=== PATIENT | female | born 1955 | race Caucasian/White ===

== ENCOUNTER 2019-10-30 13:44 | Inpatient (IN) | payer MEDICARE ==
[~2019-10-30] VITALS: Ht 167.6 cm; Wt 83.3 kg
[2019-10-30 17:30] VITALS: BP 100/76
[2019-10-30] MEDS ORDERED: CLOP75TA32 PO (18:02)
[2019-10-30] MEDS ORDERED: INSU100I21 SQ (18:02)
[2019-10-30] MEDS ORDERED: FURO40TA5 PO (18:02)
[2019-10-30] MEDS ORDERED: ASPI-556 PO (18:02)
[2019-10-30] MEDS ORDERED: FAMO20TA8 PO (18:02)
[2019-10-30] MEDS ORDERED: DOXE100C4 PO (18:02)
[2019-10-30] MEDS ORDERED: MULT-1311 PO (18:02)
[2019-10-30] MEDS ORDERED: ATOR20TA65 PO (18:02)
[2019-10-30] MEDS ORDERED: DIPH25 PO (18:02)
[2019-10-30] MEDS ORDERED: LIRA0.6P2 SQ (18:02)
[2019-10-30] MEDS ORDERED: LACT1CAP62 PO (18:02)
[2019-10-30] MEDS ORDERED: CHOL200012 PO (18:02)
[2019-10-30] MEDS ORDERED: SIMV10TA97 PO (18:02)
[2019-10-30] MEDS ORDERED: ZOLP5TAB8 PO (18:02)
[2019-10-30] MEDS ORDERED: OMEG100T PO (18:02)
[2019-10-30] MEDS ORDERED: METF-446 PO (18:02)
[2019-10-30] MEDS ORDERED: BIOT10005 PO (18:02)
[2019-10-30] MEDS ORDERED: GLIP10TA9 PO (18:02)
[2019-10-30 19:43] VITALS: BP 134/63
[2019-10-30 20:25] LABS: HEMATOCRIT 33.9 % (36-48); MEAN CORPUSCULAR HEMOGLOBIN 21.9 pg (27.0-33.0); MEAN CORPUSCULAR HGB CONC 29.5 g/dL (32.0-36.0); MEAN CORPUSCULAR VOLUME 74.3 fL (79-99); PLATELET COUNT (AUTO) 300 K/uL (130-400); RED BLOOD CELL COUNT(AUTO) 4.56 MIL/uL (4.00-5.50); RED CELL DISTRIBUTION WIDTH 16.7 % (11.0-15.5); WHITE BLOOD COUNT (AUTO) 8.2 K/uL (4.8-10.8)
[2019-10-30 20:40] LABS: INR 1.06 (0.85-1.15); PARTIAL THROMBOPLASTIN TIME 26.6 SEC (26.3-35.5); PROTHROMBIN TIME 11.4 SEC (9.6-11.6)
[2019-10-30 20:47] LABS: B-TYPE NATRIURETIC PEPTIDE 1320 pg/mL (0-100)
[2019-10-30 21:02] LABS: ALBUMIN 2.7 g/dL (3.5-5.0); BILIRUBIN,TOTAL 0.5 mg/dL (0.2-1.0); CREATININE 1.3 mg/dL (0.5-1.5); POTASSIUM 3.9 mmol/L (3.5-5.1); TOTAL PROTEIN, SERUM 6.1 g/dL (6.0-8.3)
[2019-10-30 21:18] LABS: HEMOGLOBIN A1C 7.9 % (4.0-6.0)
[2019-10-30 23:45] VITALS: BP 107/73
[2019-10-31] VITALS (29 sets, daily range): BP systolic 107–135; BP diastolic 48–74
--- NOTE | 2019-10-31 07:50 | NUR ---
ASSESSMENT PT IS AAOX3 DENIES CP DENIES SOB DENIES NV RESTING IN BED. CALL LIGHT WITHIN REACH. NPO STATUS FOR CABG TODAY, PATIENT AWARE AND AGREES.
[2019-10-31] MEDS ORDERED: AMINOCAPROIC ACID 15,000 MG in SODIUM CHLORIDE 0.9% 500ML 500 ML IV PRN (09:30)
[2019-10-31] MEDS ORDERED: EPINEPHRINE 10 MG in SODIUM CHLORIDE 0.9% 240 ML IV PRN (09:30)
[2019-10-31] MEDS ORDERED: NOREPINEPHRINE BITARTRATE 8 MG in DEXTROSE 5%-WATER 250 ML IV PRN (09:30)
[2019-10-31] MEDS ORDERED: PAPAVERINE HCL 30 MG/ML 2ML VIAL ONE (09:46)
[2019-10-31] MEDS ORDERED: CLINDAMYCIN PHOSPHATE 150 MG/ML 6ML VIAL ONE (09:47)
[2019-10-31] MEDS ORDERED: SODIUM BICARB 50MEQ 50ML VIAL ONE ×2 (09:52→11:15)
[2019-10-31] MEDS ORDERED: NITROGLYCERIN 50 MG/D5% WATER 1 BOT ONE (09:52)
--- NOTE | 2019-10-31 10:28 | NUR ---
DOWN VIA BED TO OR WITH OR STAFF. ALL BELONGINGS TAKEN WITH OR STAFF.
[2019-10-31] MEDS ORDERED: CLINDAMYCIN 900 MG/D5% WATER 50 ML IV ONE ×2 (10:33→20:27)
[2019-10-31] MEDS ORDERED: SODIUM CHLORIDE 0.9% 1000ML 1,000 ML IV ONE ×2 (10:34→13:14)
[2019-10-31] MEDS ORDERED: CLINDAMYCIN 900 MG/D5% WATER 50 ML IV SCH (11:00)
[2019-10-31] MEDS ORDERED: EPINEPHRINE 1 MG/ML AMPULE ONE (11:15)
[2019-10-31] MEDS ORDERED: AMINOCAPROIC ACID 250 MG/ML 20 ML VIAL IV ONE (11:15)
[2019-10-31] MEDS ORDERED: ESMOLOL HCL 10 MG/ML 10 ML VIAL ONE (11:15)
[2019-10-31] MEDS ORDERED: PROTAMINE SULFATE 10 MG/ML 25ML VIAL IV ONE (11:15)
[2019-10-31] MEDS ORDERED: LIDOCAINE PF 2% 5ML ABBOJECT ONE (11:15)
[2019-10-31] MEDS ORDERED: NOREPINEPHRINE BITARTRATE 1 MG/1 ML ML IV ONE (11:15)
[2019-10-31] MEDS ORDERED: HEPARIN SODIUM 1000UNIT/ML 10ML VIAL ONE ×2 (11:15→11:45)
[2019-10-31] MEDS ORDERED: MIDAZOLAM HCL 1 MG/ML 2ML VIAL ONE (11:16)
[2019-10-31] MEDS ORDERED: ROCURONIUM 10MG/1ML SYR 10 MG/ML ML ONE (11:16)
[2019-10-31] MEDS ORDERED: PROPOFOL 10 MG/ML 20ML VIAL IV ONE (11:16)
[2019-10-31] MEDS ORDERED: FENTANYL CITRATE PF 50 MCG/1 ML 20ML VIAL IJ ONE (11:16)
[2019-10-31] MEDS ORDERED: ETOMIDATE 2 MG/ML 10 ML VIAL ONE ×2 (11:19→11:47)
[2019-10-31] MEDS ORDERED: AMIODARONE HCL 50 MG/ML 3 ML VIAL ONE (11:40)
[2019-10-31] MEDS ORDERED: VASOPRESSIN 20 UNITS/ML 1ML VIAL ONE (11:41)
[2019-10-31 11:50] LABS: ABG BASE EXCESS 2.7 mmol/L (-2.0-3.0); ABG HCO3 24.7 mmol/L (21.0-28.0); ABG PCO2 29 mmHg (32-45)
[2019-10-31] MEDS ORDERED: INSULIN HUMULIN R 100 UNIT/ML 3ML ONE ×2 (11:55→11:59)
[2019-10-31] MEDS ORDERED: POTASSIUM CHLORIDE 20MEQ/100ML 300 ML IV ONE (11:56)
[2019-10-31 12:34] LABS: ABG BASE EXCESS 3.5 mmol/L (-2.0-3.0); ABG HCO3 26.8 mmol/L (21.0-28.0); ABG PCO2 36 mmHg (32-45)
[2019-10-31] MEDS ORDERED: EPHEDRINE SULFATE 50 MG/ML AMPULE ONE (12:46)
[2019-10-31] MEDS ORDERED: SODIUM CHLORIDE 0.9% 500ML 500 ML IV SCH (13:04)
[2019-10-31] MEDS ORDERED: FUROSEMIDE 10 MG/ML 4ML VIAL ONE (13:09)
[2019-10-31] MEDS ORDERED: ACETAMINOPHEN 650 MG SUPPOSITORY RC PRN (13:15)
[2019-10-31] MEDS ORDERED: AMINOCAPROIC ACID 15,000 MG in SODIUM CHLORIDE 0.9% 250 ML IV SCH (13:15)
[2019-10-31] MEDS ORDERED: SODIUM CHLORIDE 0.9% 1000ML 1,000 ML IV SCH (13:15)
[2019-10-31] MEDS ORDERED: DEXTROSE 50%-WATER 50 ML DISP.SYRIN IV PRN (13:15)
[2019-10-31] MEDS ORDERED: PROPOFOL 1000 MG/100 ML 100 ML IV PRN (13:15)
[2019-10-31] MEDS ORDERED: NITROGLYCERIN 50 MG/D5% WATER 250 BOT IV SCH (13:15)
[2019-10-31] MEDS ORDERED: INSULIN REGULAR, HUMAN 3ML 100 UNIT in SODIUM CHLORIDE 0.9% 99 ML IV SCH ×2 (13:15)
[2019-10-31] MEDS ORDERED: NOREPINEPHRINE 4MG/NS 250ML 250 ML IV PRN (13:15)
[2019-10-31] MEDS ORDERED: GLUCAGON 1MG KIT 1 MG ML IM PRN (13:15)
[2019-10-31] MEDS ORDERED: EPINEPHRINE 10 MG in DEXTROSE 5%-WATER 250 ML IV PRN (13:15)
[2019-10-31] MEDS ORDERED: ACETAMINOPHEN 325 MG TAB PO PRN (13:15)
[2019-10-31] MEDS ORDERED: SODIUM CHLORIDE 0.9% 10 ML VIAL IVP PRN (13:15)
[2019-10-31] MEDS ORDERED: POTASSIUM PHOS 15 mMOL+NS250ML 250 ML IV PRN (13:15)
[2019-10-31] MEDS ORDERED: HYDROMORPHONE HCL 0.5 MG/0.5 ML ML IVP PRN (13:15)
[2019-10-31] MEDS ORDERED: TRAMADOL HCL 50 MG TABLET PO PRN (13:15)
[2019-10-31] MEDS ORDERED: ALBUMIN (HUMAN) 5% 250 ML IV PRN (13:15)
[2019-10-31] MEDS ORDERED: HYDROMORPHONE HCL 2 MG/ML VIAL IVP PRN (13:15)
[2019-10-31] MEDS ORDERED: ONDANSETRON HCL 4 MG/2 ML VIAL IV PRN (13:15)
[2019-10-31 13:29] LABS: ABG BASE EXCESS -0.2 mmol/L (-2.0-3.0); ABG HCO3 23.2 mmol/L (21.0-28.0); ABG OXYGEN SATURATION 97.7 % (95.0-99.0); ABG PCO2 33 mmHg (32-45)
[2019-10-31 14:36] LABS: ABG BASE EXCESS 0.9 mmol/L (-2.0-3.0); ABG HCO3 25.4 mmol/L (21.0-28.0); ABG PCO2 40 mmHg (32-45)
[2019-10-31 14:36] LABS: HEMATOCRIT 27.7 % (36-48); MEAN CORPUSCULAR HEMOGLOBIN 22.3 pg (27.0-33.0); MEAN CORPUSCULAR VOLUME 74.5 fL (79-99); PLATELET COUNT (AUTO) 303 K/uL (130-400); RED BLOOD CELL COUNT(AUTO) 3.72 MIL/uL (4.00-5.50); RED CELL DISTRIBUTION WIDTH 16.7 % (11.0-15.5); WHITE BLOOD COUNT (AUTO) 22.9 K/uL (4.8-10.8)
[2019-10-31 14:42] LABS: HCO3,VENOUS BLOOD GAS 27.5 (21.0-28.0); PCO2,VENOUS BLOOD GAS 46 (32-45); PH,VENOUS BLOOD GAS 7.394 (7.350-7.450)
[2019-10-31 14:51] LABS: INR 1.25 (0.85-1.15); PARTIAL THROMBOPLASTIN TIME 24.1 SEC (26.3-35.5); PROTHROMBIN TIME 13.4 SEC (9.6-11.6)
[2019-10-31 14:59] LABS: CREATININE 1.2 mg/dL (0.5-1.5); MAGNESIUM 1.1 mg/dL (1.80-2.40); PHOSPHORUS 2.7 mg/dL (2.5-4.9)
[2019-10-31 15:04] LABS: POTASSIUM 2.7 mmol/L (3.5-5.1)
[2019-10-31] MEDS: POTASSIUM CHLORIDE 20MEQ/100ML 100 ML IV PRN ×3 (15:16→18:40)
[2019-10-31 16:21] LABS: ABG BASE EXCESS -0.8 mmol/L (-2.0-3.0); ABG HCO3 23.7 mmol/L (21.0-28.0); ABG OXYGEN SATURATION 96.5 % (95.0-99.0); ABG PCO2 38 mmHg (32-45)
[2019-10-31] MEDS: SODIUM BICARB 50MEQ 50ML VIAL IV PRN (16:45)
[2019-10-31] MEDS: MAGNESIUM 2GM PREMIX 50ML 50 ML IV PRN ×2 (16:45→16:46)
[2019-10-31 18:11] LABS: ABG BASE EXCESS 4.1 mmol/L (-2.0-3.0); ABG HCO3 29.5 mmol/L (21.0-28.0); ABG OXYGEN SATURATION 98.8 % (95.0-99.0); ABG PCO2 47 mmHg (32-45)
--- NOTE | 2019-10-31 18:15 | NUR ---
Extubation Instructions were given to patient on extubation and on what was expected of patient post extubation. Patient was extubated at 1815, patient was immediately placed on cool aerosol 40%. Patient remained within baseline/desired hemodynamic status saturating 99%. will continue to monitor patient closely.
[2019-10-31 19:28] LABS: ABG BASE EXCESS 4.8 mmol/L (-2.0-3.0); ABG HCO3 29.2 mmol/L (21.0-28.0); ABG OXYGEN SATURATION 96.4 % (95.0-99.0); ABG PCO2 43 mmHg (32-45)
--- NOTE | 2019-10-31 19:37 | NUR ---
cm note pt transfer from [facility] for surgery, pt resides at home with spouse, independent with adls and ambulation.no dme. dc plan home. will continue to follow for any dc needs. Addendum: 10/31/19 at 1939 by BAILEE SHEFFIELD CM Amended: Links added.
[2019-10-31] MEDS: CLINDAMYCIN 900 MG/D5% WATER 50 ML IV SCH (20:28)
[2019-10-31] MEDS: ACETAMINOPHEN 325 MG TAB PO PRN (20:35)
[2019-10-31] MEDS ORDERED: FAMOTIDINE/PF 20 MG/2 ML VIAL IV SCH (21:00)
[2019-10-31] MEDS: TRAMADOL HCL 50 MG TABLET PO PRN (21:22)
[2019-11-01] VITALS (48 sets, daily range): BP systolic 75–125; BP diastolic 28–97
[2019-11-01] MEDS: ACETAMINOPHEN 325 MG TAB PO PRN ×3 (03:37→20:08)
[2019-11-01 04:07] LABS: ABG BASE EXCESS 3.3 mmol/L (-2.0-3.0); ABG HCO3 26.6 mmol/L (21.0-28.0); ABG OXYGEN SATURATION 98.8 % (95.0-99.0); ABG PCO2 36 mmHg (32-45)
[2019-11-01 04:17] LABS: HEMATOCRIT 26.3 % (36-48); MEAN CORPUSCULAR HEMOGLOBIN 22.1 pg (27.0-33.0); MEAN CORPUSCULAR VOLUME 73.5 fL (79-99); RED BLOOD CELL COUNT(AUTO) 3.58 MIL/uL (4.00-5.50); RED CELL DISTRIBUTION WIDTH 16.9 % (11.0-15.5); WHITE BLOOD COUNT (AUTO) 18.4 K/uL (4.8-10.8)
[2019-11-01 04:31] LABS: INR 1.08 (0.85-1.15); PARTIAL THROMBOPLASTIN TIME 21.2 SEC (26.3-35.5); PROTHROMBIN TIME 11.6 SEC (9.6-11.6)
[2019-11-01] MEDS: CALCIUM GLUCONATE 1 GM in SODIUM CHLORIDE 0.9% 50 ML IV PRN ×3 (04:33→20:00)
[2019-11-01] MEDS: CLINDAMYCIN 900 MG/D5% WATER 50 ML IV SCH ×2 (04:35→14:13)
[2019-11-01 04:55] LABS: CREATININE 1.1 mg/dL (0.5-1.5); MAGNESIUM 1.8 mg/dL (1.80-2.40); PHOSPHORUS 4.5 mg/dL (2.5-4.9); POTASSIUM 4.2 mmol/L (3.5-5.1)
[2019-11-01] MEDS: MAGNESIUM 2GM PREMIX 50ML 50 ML IV PRN (05:14)
[2019-11-01] MEDS: FAMOTIDINE 20MG TAB 20 MG TAB PO SCH ×2 (09:00→20:00)
[2019-11-01] MEDS ORDERED: FAMOTIDINE 20MG TAB 20 MG TAB ONE (10:06)
[2019-11-01] MEDS: ASPIRIN 325 MG TABLET PO SCH (10:23)
[2019-11-01] MEDS: FUROSEMIDE 20 MG TABLET PO SCH ×2 (12:17→23:33)
[2019-11-01 14:21] LABS: ABG BASE EXCESS 1.8 mmol/L (-2.0-3.0); ABG HCO3 25.4 mmol/L (21.0-28.0); ABG OXYGEN SATURATION 94.6 % (95.0-99.0); ABG PCO2 36 mmHg (32-45)
[2019-11-01] MEDS: POTASSIUM CHLORIDE 20MEQ/100ML 100 ML IV PRN (15:44)
[2019-11-01 19:39] LABS: ABG BASE EXCESS 3.3 mmol/L (-2.0-3.0); ABG HCO3 27.1 mmol/L (21.0-28.0); ABG OXYGEN SATURATION 94.6 % (95.0-99.0); ABG PCO2 38 mmHg (32-45)
[2019-11-01] MEDS ORDERED: CALCIUM GLUCONATE 1 GM/10 ML VIAL IV ONE (19:57)
[2019-11-01 19:58] LABS: CREATININE 1.1 mg/dL (0.5-1.5); MAGNESIUM 2.1 mg/dL (1.80-2.40); PHOSPHORUS 6.3 mg/dL (2.5-4.9); POTASSIUM 4.4 mmol/L (3.5-5.1)
[2019-11-01] MEDS ORDERED: PHARMACY COMMUNICATION MISC SCH (20:00)
[2019-11-01] MEDS: ATORVASTATIN CALCIUM 40 MG TABLET PO SCH (20:00)
[2019-11-02] VITALS (32 sets, daily range): BP systolic 87–149; BP diastolic 42–97
[2019-11-02] MEDS: ACETAMINOPHEN 325 MG TAB PO PRN (02:42)
[2019-11-02 04:15] LABS: ABG BASE EXCESS -5.1 mmol/L (-2.0-3.0); ABG OXYGEN SATURATION 96.8 % (95.0-99.0); ABG PCO2 31 mmHg (32-45)
[2019-11-02 04:20] LABS: HEMATOCRIT 26.8 % (36-48); MEAN CORPUSCULAR HEMOGLOBIN 22.6 pg (27.0-33.0); MEAN CORPUSCULAR HGB CONC 30.2 g/dL (32.0-36.0); MEAN CORPUSCULAR VOLUME 74.7 fL (79-99); NUCLEATED RED BLOOD CELLS 0.2 % (0.0-0.19); RED BLOOD CELL COUNT(AUTO) 3.59 MIL/uL (4.00-5.50); RED CELL DISTRIBUTION WIDTH 18.1 % (11.0-15.5); WHITE BLOOD COUNT (AUTO) 14.4 K/uL (4.8-10.8)
[2019-11-02] MEDS: SODIUM BICARB 50MEQ 50ML VIAL IV PRN ×4 (04:21→10:11)
[2019-11-02 04:31] LABS: CREATININE 1.1 mg/dL (0.5-1.5); MAGNESIUM 1.8 mg/dL (1.80-2.40)
[2019-11-02] MEDS: CALCIUM GLUCONATE 1 GM in SODIUM CHLORIDE 0.9% 50 ML IV PRN ×4 (04:46→22:21)
[2019-11-02 05:40] LABS: ABG BASE EXCESS -0.3 mmol/L (-2.0-3.0); ABG HCO3 23.8 mmol/L (21.0-28.0); ABG OXYGEN SATURATION 96.4 % (95.0-99.0); ABG PCO2 37 mmHg (32-45)
[2019-11-02] MEDS: MAGNESIUM 2GM PREMIX 50ML 50 ML IV PRN (06:09)
[2019-11-02] MEDS: ASPIRIN 325 MG TABLET PO SCH (08:38)
[2019-11-02] MEDS: FAMOTIDINE 20MG TAB 20 MG TAB PO SCH ×2 (08:38→21:22)
--- NOTE | 2019-11-02 08:40 | NUR ---
Alva LAGUNAS ADVICE CLERK AT BEDSIDE TO SEE PT. PLAN OF CARE DISCUSSED. NOTIFIED OF HR 109-120 ST WITH FREQUENT PAC'S. CONTINUE TO WEAN DOWN EPI DRIP TOLERATED. HEMODYNAMICS AN NOTED IN EMR. CONTINUE TO MONITOR PT.
--- NOTE | 2019-11-02 09:03 | NUR ---
DR. PAT IN TO SEE PT. NOTIFIED OF CURRENT LABS/ABG/HEMODYNAMICS/HR/CXR. PLAN OF CARE DISCUSSED. NEW ORDERS RECEIVED AND NOTED.
[2019-11-02 10:00] LABS: ABG HCO3 19.1 mmol/L (21.0-28.0); ABG OXYGEN SATURATION 95.7 % (95.0-99.0); ABG PCO2 28 mmHg (32-45)
[2019-11-02] MEDS: FUROSEMIDE 20 MG TABLET PO SCH ×2 (10:10→16:52)
[2019-11-02] MEDS: ENOXAPARIN SODIUM 30 MG/0.3 ML SQ SCH (10:24)
[2019-11-02] MEDS: INSULIN HUMULIN R 100 UNIT/ML 3ML SQ SCH ×3 (11:33→21:00)
[2019-11-02 14:42] LABS: ABG BASE EXCESS 4.1 mmol/L (-2.0-3.0); ABG PCO2 34 mmHg (32-45)
[2019-11-02] MEDS: POTASSIUM CHLORIDE 20MEQ/100ML 100 ML IV PRN ×3 (14:44→16:52)
[2019-11-02 20:18] LABS: POTASSIUM 4.5 mmol/L (3.5-5.1)
[2019-11-02] MEDS: ATORVASTATIN CALCIUM 40 MG TABLET PO SCH (21:22)
[2019-11-02] MEDS: TRAMADOL HCL 50 MG TABLET PO PRN (21:34)
[2019-11-03] VITALS (39 sets, daily range): BP systolic 89–144; BP diastolic 41–84
--- NOTE | 2019-11-03 | NUR ---
patient having some episodes of delirium with visual hallucinations, stating is that a pigeon on the floor or am I loosing my mind. patient also having episodes of confusion stating she needs to get dress for work. Patient reoriented to surroundings and to medical condition.
--- NOTE | 2019-11-03 04:00 | NUR ---
patient is refusing bed bath
[2019-11-03 04:30] LABS: ABG BASE EXCESS 2.2 mmol/L (-2.0-3.0); ABG HCO3 26.1 mmol/L (21.0-28.0); ABG OXYGEN SATURATION 97.8 % (95.0-99.0); ABG PCO2 38 mmHg (32-45)
[2019-11-03 04:58] LABS: HEMATOCRIT 27.2 % (36-48); MEAN CORPUSCULAR HEMOGLOBIN 22.8 pg (27.0-33.0); MEAN CORPUSCULAR HGB CONC 30.9 g/dL (32.0-36.0); MEAN CORPUSCULAR VOLUME 73.9 fL (79-99); NUCLEATED RED BLOOD CELLS 0.1 % (0.0-0.19); RED BLOOD CELL COUNT(AUTO) 3.68 MIL/uL (4.00-5.50); RED CELL DISTRIBUTION WIDTH 18.5 % (11.0-15.5); WHITE BLOOD COUNT (AUTO) 14.1 K/uL (4.8-10.8)
[2019-11-03 05:08] LABS: CREATININE 1.4 mg/dL (0.5-1.5); POTASSIUM 4.4 mmol/L (3.5-5.1)
[2019-11-03] MEDS: INSULIN HUMULIN R 100 UNIT/ML 3ML SQ SCH ×4 (06:14→21:00)
[2019-11-03] MEDS: FAMOTIDINE 20MG TAB 20 MG TAB PO SCH ×2 (09:20→21:36)
[2019-11-03] MEDS: ASPIRIN 325 MG TABLET PO SCH (09:20)
[2019-11-03] MEDS: ENOXAPARIN SODIUM 30 MG/0.3 ML SQ SCH (09:21)
[2019-11-03] MEDS: FUROSEMIDE 20 MG TABLET PO SCH ×2 (09:22→17:25)
[2019-11-03] MEDS ORDERED: ACETAMINOPHEN-CODEINE 300/30MG TAB PO PRN (10:00)
[2019-11-03 19:13] LABS: ABG BASE EXCESS 3.7 mmol/L (-2.0-3.0); ABG HCO3 26.8 mmol/L (21.0-28.0); ABG OXYGEN SATURATION 92.1 % (95.0-99.0); ABG PCO2 35 mmHg (32-45)
[2019-11-03 19:48] LABS: CREATININE 1.6 mg/dL (0.5-1.5); POTASSIUM 3.7 mmol/L (3.5-5.1)
[2019-11-03] MEDS ORDERED: METOPROLOL TARTRATE 25 MG TAB PO SCH (21:00)
--- NOTE | 2019-11-03 21:21 | NUR ---
Refused merchant. Ambulated to bathroom with assistance. Voided 300 mls concentrated yellow urine in specimen enriquez and colored toilet water yellow with urine. Call placed to Dr Weaver. Orders received.
--- NOTE | 2019-11-03 21:25 | NUR ---
[address] Weaver to report ABG, bmp results.
[2019-11-03] MEDS ORDERED: SODIUM CHLORIDE 0.9% 1000ML 1,000 ML IV SCH (21:30)
[2019-11-03] MEDS: ATORVASTATIN CALCIUM 40 MG TABLET PO SCH (21:36)
[2019-11-03] MEDS: MAGNESIUM 2GM PREMIX 50ML 50 ML IV PRN (21:37)
[2019-11-03] MEDS: POTASSIUM CHLORIDE 20MEQ/100ML 100 ML IV PRN (21:37)
[2019-11-04 03:57] VITALS: BP 107/68
[2019-11-04 04:19] LABS: BASOPHILS % (AUTO) 0.1 % (0.0-5.0); EOSINOPHILS % (AUTO) 0.4 % (0.0-8.0); HEMATOCRIT 28.3 % (36-48); LYMPHOCYTES % (AUTO) 5.6 % (21.0-51.0); MEAN CORPUSCULAR HGB CONC 29.7 g/dL (32.0-36.0); MEAN CORPUSCULAR VOLUME 74.3 fL (79-99); MONOCYTES % (AUTO) 6.7 % (3.0-13.0); NEUTROPHILS % (AUTO) 86.5 % (40.0-77.0); NUCLEATED RED BLOOD CELLS 0.1 % (0.0-0.19); PLATELET COUNT (AUTO) 266 K/uL (130-400); RED BLOOD CELL COUNT(AUTO) 3.81 MIL/uL (4.00-5.50); RED CELL DISTRIBUTION WIDTH 18.7 % (11.0-15.5); WHITE BLOOD COUNT (AUTO) 13.7 K/uL (4.8-10.8)
[2019-11-04 04:33] LABS: CREATININE 1.3 mg/dL (0.5-1.5); MAGNESIUM 2.2 mg/dL (1.80-2.40); POTASSIUM 4.1 mmol/L (3.5-5.1)
[2019-11-04 07:15] VITALS: BP 115/64
[2019-11-04] MEDS: INSULIN HUMULIN R 100 UNIT/ML 3ML SQ SCH ×4 (07:30→22:04)
[2019-11-04] MEDS: ENOXAPARIN SODIUM 30 MG/0.3 ML SQ SCH (09:29)
[2019-11-04] MEDS: ASPIRIN 325 MG TABLET PO SCH (09:29)
[2019-11-04] MEDS: METOPROLOL TARTRATE 25 MG TAB PO SCH ×2 (09:30→20:49)
[2019-11-04] MEDS: FUROSEMIDE 20 MG TABLET PO SCH ×2 (09:31→17:49)
[2019-11-04] MEDS: FAMOTIDINE 20MG TAB 20 MG TAB PO SCH ×2 (09:33→20:49)
[2019-11-04] MEDS: SPIRONOLACTONE 25 MG TAB PO SCH ×2 (09:34→20:49)
--- NOTE | 2019-11-04 11:59 | NUR ---
RD UPDATE Received call from Pt. Pt reports poor appetite and concern for blood sugar levels. Pt previously refusing to eat without diet coke as per Pt services (11/02). Diet Coke previously OK'd by per RN(11/02). Pt requesting senior net developer salad for dinner and Glucerna BID.
--- NOTE | 2019-11-04 16:50 | NUR ---
REPORT CALLED TO LUIS CONLEY AND PT WILL BE TRANSFERRED TO ROOM 403. PT WAS ADVISED OF TRANSFER AND TRANSFERRED WILL ALL OF HER BELONGINGS CELL PHONE AND [facility].
[2019-11-04 19:28] VITALS: BP 95/76
[2019-11-04] MEDS: ATORVASTATIN CALCIUM 40 MG TABLET PO SCH (20:49)
[2019-11-04 23:27] VITALS: BP 95/57
[2019-11-05 03:30] VITALS: BP 100/67
--- NOTE | 2019-11-05 04:30 | NUR ---
PATIENT ALERT TO NAME AND . PATIENT DOES NOT KNOW WHY SHE WAS IN THE HOSPITAL. SHE ATTEMPTED TO REMOVED MIDSTERNAL DRESSING. PATIENT IS IMPULSIVE, ATTEMPTING TO GET OUT OF BED. VERY WEAK, CANNOT STAND ON HER OWN. ASSIST X2. REMOVED TELE PACK AND GOWN SEVERAL TIMES. PATIENT REORIENTED THROUGHOUT THE NIGHT. USING 2-3L OF 02 VIA NC. WILL CONTINUE TO MONITOR.
[2019-11-05 06:07] LABS: BASOPHILS % (AUTO) 0.1 % (0.0-5.0); EOSINOPHILS % (AUTO) 0.4 % (0.0-8.0); HEMATOCRIT 31.5 % (36-48); LYMPHOCYTES % (AUTO) 9.3 % (21.0-51.0); MEAN CORPUSCULAR HEMOGLOBIN 22.2 pg (27.0-33.0); MEAN CORPUSCULAR HGB CONC 30.5 g/dL (32.0-36.0); MEAN CORPUSCULAR VOLUME 72.9 fL (79-99); MONOCYTES % (AUTO) 9.1 % (3.0-13.0); NEUTROPHILS % (AUTO) 80.5 % (40.0-77.0); NUCLEATED RED BLOOD CELLS 0.2 % (0.0-0.19); PLATELET COUNT (AUTO) 288 K/uL (130-400); RED BLOOD CELL COUNT(AUTO) 4.32 MIL/uL (4.00-5.50); RED CELL DISTRIBUTION WIDTH 18.8 % (11.0-15.5); WHITE BLOOD COUNT (AUTO) 13.9 K/uL (4.8-10.8)
[2019-11-05] MEDS: INSULIN HUMULIN R 100 UNIT/ML 3ML SQ SCH ×3 (06:24→21:44)
[2019-11-05 06:27] LABS: CREATININE 1.6 mg/dL (0.5-1.5); MAGNESIUM 2.2 mg/dL (1.80-2.40); POTASSIUM 3.9 mmol/L (3.5-5.1)
--- NOTE | 2019-11-05 08:05 | NUR ---
DR. PAT IN TO SEE PT. ORDERS GIVEN AND ENTERED.
[2019-11-05] MEDS ORDERED: DOPAMINE HCL 400 MG/D5%-WATER 250 ML IV PRN (08:22)
[2019-11-05 08:29] VITALS: BP 107/65
[2019-11-05] MEDS ORDERED: DOPAMINE 800MG/D5 250ML 250 ML IV PRN (08:35)
[2019-11-05] MEDS: ASPIRIN 325 MG TABLET PO SCH (09:52)
[2019-11-05] MEDS: FAMOTIDINE 20MG TAB 20 MG TAB PO SCH ×2 (09:52→21:36)
[2019-11-05] MEDS: FUROSEMIDE 20 MG TABLET PO SCH ×2 (09:53→17:21)
[2019-11-05] MEDS: METOPROLOL TARTRATE 25 MG TAB PO SCH ×2 (09:53→21:36)
[2019-11-05] MEDS: SPIRONOLACTONE 25 MG TAB PO SCH (09:53)
[2019-11-05] MEDS: ENOXAPARIN SODIUM 30 MG/0.3 ML SQ SCH (09:54)
[2019-11-05 11:25] VITALS: BP 113/71
--- NOTE | 2019-11-05 14:29 | NUR ---
SPOUSE CALLED WANTING UPDATE ON PT.
[2019-11-05 18:59] VITALS: BP 108/64
[2019-11-05 19:20] VITALS: BP 114/56
--- NOTE | 2019-11-05 19:40 | NUR ---
PM Assessment Received pt with Dopamine drip at 3mcg/kg/min infusing well, site checked with good blood return. Routine assessment done, plan of care discuss, pt noted with some disorientation, re-oriented to time, calm, denies discomfort. Pt reminded not to be touching/scratching her incision sites which is noted open to air. Pt verbalizes understanding that once she will be discharge, she will need to modify her diet, do some walking as her exercise & to make sure her diabetes numbers will be good. Pt made aware she might need some rehabilitation before going home to get back her strength, agreed. Site care rendered to current IV access where the Dopamine drip is hooked up, the other access discontinued aseptically noted leaking, with catheter tip intact.
[2019-11-05] MEDS: ATORVASTATIN CALCIUM 40 MG TABLET PO SCH (21:36)
[2019-11-05 23:40] VITALS: BP 111/55
[2019-11-06 03:20] VITALS: BP 112/56
[2019-11-06 04:05] LABS: BASOPHILS % (AUTO) 0.1 % (0.0-5.0); EOSINOPHILS % (AUTO) 0.7 % (0.0-8.0); HEMATOCRIT 26.5 % (36-48); MEAN CORPUSCULAR HEMOGLOBIN 22.4 pg (27.0-33.0); MEAN CORPUSCULAR HGB CONC 30.9 g/dL (32.0-36.0); MEAN CORPUSCULAR VOLUME 72.4 fL (79-99); MONOCYTES % (AUTO) 9.2 % (3.0-13.0); NEUTROPHILS % (AUTO) 82.2 % (40.0-77.0); NUCLEATED RED BLOOD CELLS 0.3 % (0.0-0.19); PLATELET COUNT (AUTO) 212 K/uL (130-400); RED BLOOD CELL COUNT(AUTO) 3.66 MIL/uL (4.00-5.50); RED CELL DISTRIBUTION WIDTH 18.9 % (11.0-15.5); WHITE BLOOD COUNT (AUTO) 11.2 K/uL (4.8-10.8)
[2019-11-06 04:13] LABS: CREATININE 1.2 mg/dL (0.5-1.5); POTASSIUM 3.2 mmol/L (3.5-5.1)
[2019-11-06 04:22] LABS: B-TYPE NATRIURETIC PEPTIDE 3090 pg/mL (0-100)
[2019-11-06] MEDS: INSULIN HUMULIN R 100 UNIT/ML 3ML SQ SCH ×4 (06:24→21:38)
[2019-11-06 07:00] VITALS: BP 112/61
[2019-11-06] MEDS: ASPIRIN 325 MG TABLET PO SCH (08:50)
[2019-11-06] MEDS: SPIRONOLACTONE 25 MG TAB PO SCH (08:50)
[2019-11-06] MEDS: POTASSIUM CHLORIDE 20 MEQ ERTAB PO PRN ×2 (08:50→09:06)
[2019-11-06] MEDS: METOPROLOL TARTRATE 25 MG TAB PO SCH ×2 (08:50→21:32)
[2019-11-06] MEDS: FAMOTIDINE 20MG TAB 20 MG TAB PO SCH ×2 (08:50→21:32)
[2019-11-06] MEDS: ENOXAPARIN SODIUM 30 MG/0.3 ML SQ SCH (08:51)
[2019-11-06] MEDS: FUROSEMIDE 20 MG TABLET PO SCH ×2 (09:06→16:44)
[2019-11-06 11:30] VITALS: BP 109/63
[2019-11-06] MEDS: POTASSIUM CHLORIDE 10% ELIXIR 20 MEQ/15 ML UDCUP PO PRN (12:56)
[2019-11-06 15:30] VITALS: BP 131/55
[2019-11-06 20:35] VITALS: BP 103/58
[2019-11-06] MEDS: ATORVASTATIN CALCIUM 40 MG TABLET PO SCH (21:31)
[2019-11-07 00:09] VITALS: BP 94/63
[2019-11-07 04:15] VITALS: BP 91/62
[2019-11-07 05:30] LABS: POTASSIUM 3.2 mmol/L (3.5-5.1)
[2019-11-07] MEDS: POTASSIUM CHLORIDE 10% ELIXIR 20 MEQ/15 ML UDCUP PO PRN ×3 (05:52→17:07)
[2019-11-07] MEDS: INSULIN HUMULIN R 100 UNIT/ML 3ML SQ SCH ×4 (05:53→21:55)
--- NOTE | 2019-11-07 06:19 | NUR ---
PATIENT PULLED IV OUT WHEN ATTEMPTING TO GET UP, PATIENT REFUSES TO HAVE IV RESTARTED, ATTEMPED TO DISCUSS IV AND MEDICATION BY IT AND PATIENT CONTINUES TO REFUSE IV TO BE RESTARTED.
--- NOTE | 2019-11-07 06:50 | NUR ---
ATTEMPTED TO NOTIFY, NO ANSWER RECEIVED FROM CALL, DR. KATZ REGARDING IV BEING OUT AND DOPAMINE NOT BEING INFUSED.
--- NOTE | 2019-11-07 08:35 | NUR ---
DR. PAT SPEAKING WITH PT.'S SPOUSE, ADRIANA BYNUM, VIA TELEPHONE AND UPDATING ON PT.'S STATUS AND ANSWERING QUESTIONS.
[2019-11-07] MEDS: FUROSEMIDE 20 MG TABLET PO SCH ×2 (09:01→17:05)
[2019-11-07] MEDS: FAMOTIDINE 20MG TAB 20 MG TAB PO SCH ×2 (09:01→20:38)
[2019-11-07] MEDS: ASPIRIN 325 MG TABLET PO SCH (09:01)
[2019-11-07] MEDS: METOPROLOL TARTRATE 25 MG TAB PO SCH ×2 (09:02→20:39)
[2019-11-07] MEDS: SPIRONOLACTONE 25 MG TAB PO SCH (09:02)
[2019-11-07] MEDS: ENOXAPARIN SODIUM 30 MG/0.3 ML SQ SCH (09:03)
[2019-11-07 12:00] VITALS: BP 95/61
--- NOTE | 2019-11-07 13:01 | NUR ---
JASMEET HUGHES, IN ROOM SPEAKING WITH PTLuke
--- NOTE | 2019-11-07 13:55 | NUR ---
INFORMED PT. RE:NEED FOR COVID TESTING IF PLAN IS TO DISCHARGE TO REHAB OR SNF FOR REHAB, PT. REFUSED COVID TESTING. STATES, "I WILL BE GOING HOME WHEN I'M DISCHARGED. I/M NOT GOING TO ANY FACILITY." CM MADE AWARE.
[2019-11-07 16:00] VITALS: BP 111/58
[2019-11-07 20:00] VITALS: BP 142/73
[2019-11-07] MEDS: ATORVASTATIN CALCIUM 40 MG TABLET PO SCH (20:39)
[2019-11-07] MEDS ORDERED: DIPHENHYDRAMINE HCL 25 MG CAPSULE PO PRN (21:00)
--- NOTE | 2019-11-07 21:00 | NUR ---
Bilateral US performed due to patients BLE coldness. As per US tech patient has thrombus to left greater saphenous vein. Contacted [facility] and new orders received can carried out.
[2019-11-07 23:28] VITALS: BP 106/63
[2019-11-08 04:00] VITALS: BP 106/70
[2019-11-08] MEDS: INSULIN HUMULIN R 100 UNIT/ML 3ML SQ SCH ×4 (06:31→22:17)
[2019-11-08 07:41] LABS: POTASSIUM 4.3 mmol/L (3.5-5.1)
[2019-11-08 07:50] VITALS: BP 104/67
[2019-11-08] MEDS: FAMOTIDINE 20MG TAB 20 MG TAB PO SCH ×2 (09:00→21:00)
[2019-11-08] MEDS ORDERED: ENOXAPARIN SODIUM 60 MG/0.6 ML SQ SCH (09:00)
[2019-11-08] MEDS: FUROSEMIDE 20 MG TABLET PO SCH ×2 (09:52→17:53)
[2019-11-08] MEDS: SPIRONOLACTONE 25 MG TAB PO SCH (09:52)
[2019-11-08] MEDS: ASPIRIN 325 MG TABLET PO SCH (09:52)
[2019-11-08] MEDS: METOPROLOL TARTRATE 25 MG TAB PO SCH ×2 (09:53→21:32)
[2019-11-08 11:26] VITALS: BP 95/62
--- NOTE | 2019-11-08 16:01 | NUR ---
CM NOTE/DCP MOTHER, BOLIVAR JOSHI, CALLED D/T PATIENT CONFUSED AND ON 1:1 MONITORING. DCP FOR IRU VS SNF. PER MOTHER, OK FOR SNF AND [facility] COMPLETED FOR [facility] [place] [facility]. CM TO FOLLOW UP.
--- NOTE | 2019-11-08 16:15 | NUR ---
RDSCREEN - LOS X 9 Pt admitted with Severe epicardial triple vessel disease. 75gm CCD, Glucerna BID. Pt reports tolerating with no GI distress, fair PO intake. Requesting Glucerna QD rather than BID. Moderate BLE 3+ edema. BNP 3090. Pt s/p CABG (10/30). Intermittent confusion as per EMR. Recommend modify nutritional supplement to QD Recommend 1200mL Fluid Restriction RD to continue to monitor. Please notify as additional nutrition concerns arise. Thank you. Addendum: 11/08/19 at [address] Amended: Links added.
[2019-11-08 17:41] VITALS: BP 118/77
[2019-11-08] MEDS: ATORVASTATIN CALCIUM 40 MG TABLET PO SCH (21:32)
[2019-11-09] MEDS: ACETAMINOPHEN 325 MG TAB PO PRN ×2 (04:46→20:38)
[2019-11-09 05:15] LABS: MEAN CORPUSCULAR HGB CONC 29.7 g/dL (32.0-36.0); MEAN CORPUSCULAR VOLUME 74.3 fL (79-99); NUCLEATED RED BLOOD CELLS 0.4 % (0.0-0.19); PLATELET COUNT (AUTO) 312 K/uL (130-400); RED BLOOD CELL COUNT(AUTO) 4.04 MIL/uL (4.00-5.50); RED CELL DISTRIBUTION WIDTH 20.6 % (11.0-15.5); WHITE BLOOD COUNT (AUTO) 12.5 K/uL (4.8-10.8)
[2019-11-09 05:27] LABS: CREATININE 1.1 mg/dL (0.5-1.5); MAGNESIUM 1.8 mg/dL (1.80-2.40); PHOSPHORUS 2.8 mg/dL (2.5-4.9); POTASSIUM 3.9 mmol/L (3.5-5.1)
[2019-11-09 06:12] LABS: PLATELET MORPHOLOGY LARGE PLTS PRESENT
[2019-11-09] MEDS: INSULIN HUMULIN R 100 UNIT/ML 3ML SQ SCH ×3 (06:30→16:55)
[2019-11-09 07:05] VITALS: BP 110/87
[2019-11-09] MEDS: FAMOTIDINE 20MG TAB 20 MG TAB PO SCH ×2 (09:00→20:37)
[2019-11-09] MEDS: ASPIRIN 325 MG TABLET PO SCH (10:07)
[2019-11-09] MEDS: FUROSEMIDE 20 MG TABLET PO SCH ×2 (10:07→16:54)
[2019-11-09] MEDS: SPIRONOLACTONE 25 MG TAB PO SCH (10:08)
[2019-11-09] MEDS: METOPROLOL TARTRATE 25 MG TAB PO SCH ×2 (10:08→20:37)
[2019-11-09 10:33] VITALS: BP 98/52
--- NOTE | 2019-11-09 12:18 | NUR ---
CM NOTE/DCP [facility] SPOUSE, JIMMY BYNUM [phone], CALLED ME AND STATED PATIENT COULD NOT GO HOME AND STAY WITH HIM BECAUSE HE NEEDS HELP FROM PROVIDER SERVICES HIMSELF AND IS UNABLE TO CARE FOR HER. [facility] COMPLETED FOR [place]. DR PRUETT NURSE MADE AWARE. DCP FOR SNF D/T WEAKNESS AND REQUIRES PT AND WOUND CARE TO INCISION TO CHEST. CM TO FOLLOW UP ACCORDINGLY.
[2019-11-09 15:58] VITALS: BP 123/65
--- NOTE | 2019-11-09 16:00 | NUR ---
NOTED INCREASE AMOUNT OF SEROSANGUINEOUS DRAINAGE FROM INFERIOR STERNAL WOUND, EDGES APPEAR APPROXIMATED, SOME SWELLING NOTED. COLOR IS PINK AND WOUND IS COOL TO TOUCH. INFORMED DR PRUETT OF FINDINGS. STATES HE WILL REASSESS PATIENT. PATIENT IS STABLE NO SIGNS OF DISTRESS, NO FURTHER ORDERS
--- NOTE | 2019-11-09 19:10 | NUR ---
dr gaffney at bedside here to assess the midsternal incision dressing saturated betadine irrigation to sternal wound done by dr gaffney and packed with dry 4x4 then covered with medipore tape instructed to changed twice per shift as done by
[2019-11-09] MEDS ORDERED: VANCOMYCIN PROTOCOL PER PHARMACY IV SCH (19:45)
[2019-11-09 20:00] VITALS: BP 109/59
[2019-11-09] MEDS: ATORVASTATIN CALCIUM 40 MG TABLET PO SCH (20:37)
[2019-11-09] MEDS: LEVOFLOXACIN 500 MG/D5W 100 ML 100 ML IV SCH (21:00)
[2019-11-09] MEDS ORDERED: LEVOFLOXACIN 750 MG TABLET PO SCH (21:00)
[2019-11-09] MEDS: VANCOMYCIN 1GM+NS 250ML 250 ML IV SCH (23:00)
[2019-11-09 23:33] VITALS: BP 98/48
[2019-11-10 04:13] VITALS: BP 112/66
[2019-11-10 04:36] LABS: HEMATOCRIT 31.8 % (36-48); MEAN CORPUSCULAR HEMOGLOBIN 22.2 pg (27.0-33.0); MEAN CORPUSCULAR HGB CONC 30.2 g/dL (32.0-36.0); MEAN CORPUSCULAR VOLUME 73.6 fL (79-99); NUCLEATED RED BLOOD CELLS 0.5 % (0.0-0.19); RED BLOOD CELL COUNT(AUTO) 4.32 MIL/uL (4.00-5.50); RED CELL DISTRIBUTION WIDTH 20.7 % (11.0-15.5); WHITE BLOOD COUNT (AUTO) 13.2 K/uL (4.8-10.8)
[2019-11-10 04:49] LABS: MAGNESIUM 1.9 mg/dL (1.80-2.40); PHOSPHORUS 2.9 mg/dL (2.5-4.9); POTASSIUM 3.3 mmol/L (3.5-5.1)
[2019-11-10] MEDS: INSULIN HUMULIN R 100 UNIT/ML 3ML SQ SCH ×4 (06:52→21:48)
[2019-11-10 08:02] VITALS: BP 107/61
[2019-11-10] MEDS: FAMOTIDINE 20MG TAB 20 MG TAB PO SCH ×2 (09:38→21:47)
[2019-11-10] MEDS: SPIRONOLACTONE 25 MG TAB PO SCH (09:39)
[2019-11-10] MEDS: FUROSEMIDE 20 MG TABLET PO SCH ×3 (09:39→21:47)
[2019-11-10] MEDS: ASPIRIN 325 MG TABLET PO SCH (09:39)
[2019-11-10] MEDS: METOPROLOL TARTRATE 25 MG TAB PO SCH ×2 (09:40→21:47)
[2019-11-10] MEDS: VANCOMYCIN 1GM+NS 250ML 250 ML IV SCH ×2 (09:40→21:47)
[2019-11-10] MEDS: POTASSIUM CHLORIDE 20 MEQ ERTAB PO PRN ×2 (09:43→15:09)
[2019-11-10 11:00] VITALS: BP 114/69
--- NOTE | 2019-11-10 12:20 | NUR ---
CM NOTE/[facility] PER KATY, CLINICAL PACKET RECEIVED AND UNDER REVIEW. PATIENT PENDING COVID TESTING FOR SNF PLACEMENT, LUIS CONLEY, PRIMARY NURSE, AWARE.
--- NOTE | 2019-11-10 12:51 | NUR ---
CM NOTE/[facility] NEW ORDER FOR [facility], CLINICAL PACKET FAXED, CM TO FOLLOW UP
[2019-11-10 15:30] VITALS: BP 98/55
[2019-11-10 20:11] VITALS: BP 102/59
[2019-11-10] MEDS: LEVOFLOXACIN 500 MG/D5W 100 ML 100 ML IV SCH (21:46)
[2019-11-10] MEDS: ATORVASTATIN CALCIUM 40 MG TABLET PO SCH (21:47)
[2019-11-10] MEDS: ACETAMINOPHEN 325 MG TAB PO PRN (21:49)
[2019-11-10 23:25] VITALS: BP 96/61
[2019-11-11] VITALS (8 sets, daily range): BP systolic 80–114; BP diastolic 41–66
[2019-11-11] MEDS: INSULIN HUMULIN R 100 UNIT/ML 3ML SQ SCH ×4 (07:04→22:07)
--- NOTE | 2019-11-11 07:40 | NUR ---
Maria Del Carmen CORTEZ PA-C, IN ROOM ASSESSING/SPEAKING WITH PT. RE:PLAN OF CARE AND ANSWERING QUESTIONS, PT. VERBALIZED UNDERSTANDING.
[2019-11-11 08:10] LABS: HEMATOCRIT 33.5 % (36-48); MEAN CORPUSCULAR HGB CONC 29.6 g/dL (32.0-36.0); MEAN CORPUSCULAR VOLUME 74.4 fL (79-99); NUCLEATED RED BLOOD CELLS 0.2 % (0.0-0.19); RED BLOOD CELL COUNT(AUTO) 4.5 MIL/uL (4.00-5.50); RED CELL DISTRIBUTION WIDTH 21.1 % (11.0-15.5); WHITE BLOOD COUNT (AUTO) 16.6 K/uL (4.8-10.8)
[2019-11-11 08:12] LABS: CREATININE 1.1 mg/dL (0.5-1.5); POTASSIUM 3.9 mmol/L (3.5-5.1)
[2019-11-11] MEDS: ASPIRIN 325 MG TABLET PO SCH (10:04)
[2019-11-11] MEDS: SPIRONOLACTONE 25 MG TAB PO SCH (10:04)
[2019-11-11] MEDS: LISINOPRIL 2.5 MG TABLET PO SCH (10:04)
[2019-11-11] MEDS: FAMOTIDINE 20MG TAB 20 MG TAB PO SCH ×2 (10:04→21:51)
[2019-11-11] MEDS: FUROSEMIDE 20 MG TABLET PO SCH ×3 (10:04→21:52)
[2019-11-11] MEDS: METOPROLOL TARTRATE 25 MG TAB PO SCH ×2 (10:04→21:00)
[2019-11-11] MEDS: VANCOMYCIN 1GM+NS 250ML 250 ML IV SCH ×2 (10:05→21:53)
--- NOTE | 2019-11-11 10:30 | NUR ---
PT. ASSISTED TO BED FROM RECLINER. WOUND VAC APPLIED ORDERED TO LOWER MIDSTERNAL CHEST WOUND. WOUND NOTED TO BE 9CM IN LENGTH BY 4CM IN WIDTH AT WIDEST PART IN CENTER. PT. TOLERATED WELL. NO AIR LEAK NOTED. CALL LIGHT WITHIN REACH, VERBALIZED ABILITY TO USE. BED LOW, SIDE RAILS UP X3. SITTER AT BEDSIDE.
--- NOTE | 2019-11-11 13:46 | NUR ---
CM NOTE/[facility] ACCEPTED/[facility] APPROVED PER KATY AT [facility], PATIENT APPROVED FOR SNF. PENDING COVID TESTING RESULTS BEFORE TRANSFER. [facility] APPROVED PER [facility], NURSE TO COME TO HOSPITAL TO FIT PATIENT FOR VEST. PRIMARY NURSE, CUAUHTEMOC CONLEY, MADE AWARE.
--- NOTE | 2019-11-11 15:32 | NUR ---
RD FOLLOW UP Pt with poor PO intake. Glucerna QD per Pt request in place. No report of GI distress. Pt with nonhealing thoracic incision as per EMR. Recommend Elie BID, 500mg Vitamin C (BID), 220mg ZnSO4 (QD) for wound healing support. RD to continue to monitor. Please notify as additional nutrition concerns arise. Thank you.
--- NOTE | 2019-11-11 16:00 | NUR ---
COY JOHNSON, LIFEVEST REPAIRER TYPEWRITER IN ROOM WITH PT.
[2019-11-11] MEDS: ACETAMINOPHEN 325 MG TAB PO PRN (18:55)
--- NOTE | 2019-11-11 20:20 | NUR ---
PM Assessment Received pt very doubtful when assessment was being done. Pt verbalizes desire to go home, denies discomfort, with wound vac in place. Pt need a lot of encouragements to cooperate & allow me to do my assessment.
[2019-11-11] MEDS: ATORVASTATIN CALCIUM 40 MG TABLET PO SCH (21:51)
[2019-11-11] MEDS: LEVOFLOXACIN 500 MG/D5W 100 ML 100 ML IV SCH (21:52)
[2019-11-12] MEDS: LISINOPRIL 2.5 MG TABLET PO SCH (00:11)
[2019-11-12 03:03] VITALS: BP 93/43
[2019-11-12 03:46] LABS: HEMATOCRIT 28.4 % (36-48); MEAN CORPUSCULAR HEMOGLOBIN 22.1 pg (27.0-33.0); MEAN CORPUSCULAR HGB CONC 30.3 g/dL (32.0-36.0); NUCLEATED RED BLOOD CELLS 0.1 % (0.0-0.19); RED BLOOD CELL COUNT(AUTO) 3.89 MIL/uL (4.00-5.50); WHITE BLOOD COUNT (AUTO) 14.5 K/uL (4.8-10.8)
[2019-11-12 03:59] LABS: CREATININE 1.3 mg/dL (0.5-1.5); MAGNESIUM 1.7 mg/dL (1.80-2.40); PHOSPHORUS 2.7 mg/dL (2.5-4.9); POTASSIUM 3.2 mmol/L (3.5-5.1)
[2019-11-12] MEDS: INSULIN HUMULIN R 100 UNIT/ML 3ML SQ SCH ×4 (06:28→21:44)
[2019-11-12 07:00] VITALS: BP 110/47
--- NOTE | 2019-11-12 09:54 | NUR ---
DR. PAT IN ROOM SPEAKING WITH PT. RE:PLAN OF CARE.
[2019-11-12] MEDS: ASPIRIN 325 MG TABLET PO SCH (10:37)
[2019-11-12] MEDS: FAMOTIDINE 20MG TAB 20 MG TAB PO SCH ×2 (10:37→21:00)
[2019-11-12] MEDS: VANCOMYCIN 1GM+NS 250ML 250 ML IV SCH ×2 (10:37→21:38)
[2019-11-12] MEDS: SPIRONOLACTONE 25 MG TAB PO SCH (10:37)
[2019-11-12] MEDS: METOPROLOL TARTRATE 25 MG TAB PO SCH ×2 (10:38→21:00)
[2019-11-12] MEDS: FUROSEMIDE 20 MG TABLET PO SCH ×3 (10:45→21:37)
[2019-11-12] MEDS: POTASSIUM CHLORIDE 20 MEQ ERTAB PO SCH ×2 (10:45→21:38)
[2019-11-12 11:00] VITALS: BP 100/55
--- NOTE | 2019-11-12 11:08 | NUR ---
CALLED Luke ADRIANA BYNUM, PT.'S SPOUSE, PER HIS REQUEST ON PRIOR CALL PLACED BY HIM. UPDATED ON PT.'S STATUS AND QUESTIONS ANSWERED. ALSO, INFORMED SPOUSE PT. RELUCTANT TO GET OUT OF BED WITH P.T. THIS MORNING AND DR. PAT SPOKE WITH PT.'S MOTHER VIA TELEPHONE EXTENSIVELY THIS MORNING AND UPDATED ON STATUS; VERBALIZED UNDERSTANDING.
[2019-11-12 16:00] VITALS: BP 105/56
--- NOTE | 2019-11-12 17:44 | NUR ---
CM NOTE CM attempted to call spouse Jabari Jacobs. No answer, left message.
--- NOTE | 2019-11-12 18:35 | NUR ---
CM NOTE CM received phone call from spouse. CM explained d/c planning pending COVID results and also notified that pt will need sitter to be discontinued for at least 24 hrs. Notified that per nursing, pt has had some improvement with mental status but still disoriented at times. Verbalized understanding.
[2019-11-12 20:01] VITALS: BP 98/57
[2019-11-12] MEDS: DOXEPIN HCL 25 MG CAP PO SCH (21:37)
[2019-11-12] MEDS: ATORVASTATIN CALCIUM 40 MG TABLET PO SCH (21:37)
[2019-11-12] MEDS: LEVOFLOXACIN 500 MG/D5W 100 ML 100 ML IV SCH (21:38)
[2019-11-12] MEDS: ENOXAPARIN SODIUM 30 MG/0.3 ML SQ SCH (21:42)
[2019-11-12 23:49] VITALS: BP 107/48
[2019-11-13 04:01] VITALS: BP 90/55
[2019-11-13 04:34] LABS: HEMATOCRIT 26.3 % (36-48); MEAN CORPUSCULAR HEMOGLOBIN 21.9 pg (27.0-33.0); MEAN CORPUSCULAR VOLUME 73.1 fL (79-99); NUCLEATED RED BLOOD CELLS 0.2 % (0.0-0.19); RED BLOOD CELL COUNT(AUTO) 3.6 MIL/uL (4.00-5.50); RED CELL DISTRIBUTION WIDTH 19.9 % (11.0-15.5); WHITE BLOOD COUNT (AUTO) 11.3 K/uL (4.8-10.8)
[2019-11-13 04:38] LABS: CREATININE 1.1 mg/dL (0.5-1.5); POTASSIUM 3.5 mmol/L (3.5-5.1)
--- NOTE | 2019-11-13 06:24 | NUR ---
PATIENT REFUSED TIMES TWO TO HAVE BLOOD SUGAR OBTAINED. PATIENT ALERT TO NAME AND PLACE.
[2019-11-13] MEDS: INSULIN HUMULIN R 100 UNIT/ML 3ML SQ SCH ×4 (06:47→20:46)
[2019-11-13 07:09] VITALS: BP 94/53
[2019-11-13] MEDS: FAMOTIDINE 20MG TAB 20 MG TAB PO SCH ×2 (08:57→21:00)
[2019-11-13] MEDS: ASPIRIN 325 MG TABLET PO SCH (08:57)
[2019-11-13] MEDS: FUROSEMIDE 20 MG TABLET PO SCH (08:57)
[2019-11-13] MEDS: VANCOMYCIN 1GM+NS 250ML 250 ML IV SCH ×2 (08:57→21:25)
[2019-11-13] MEDS: METOPROLOL TARTRATE 25 MG TAB PO SCH (08:58)
[2019-11-13] MEDS: POTASSIUM CHLORIDE 20 MEQ ERTAB PO SCH ×2 (08:58→21:26)
--- NOTE | 2019-11-13 09:06 | NUR ---
LAMONT BAPTISTE NP, IN ROOM ASSESSING/SPEAKING WITH PT.
--- NOTE | 2019-11-13 09:43 | NUR ---
DR. WAGNER AND DR. PAT IN ROOM SPEAKING WITH PT. RE:PLAN OF CARE. PT.'S QUESTIONS ANSWERED.
[2019-11-13 12:00] VITALS: BP 98/55
[2019-11-13] MEDS ORDERED: MIDODRINE HCL 5 MG TABLET PO SCH (14:00)
[2019-11-13 16:00] VITALS: BP 111/52
[2019-11-13 20:00] VITALS: BP 113/67
[2019-11-13] MEDS ORDERED: METOPROLOL TARTRATE 25 MG TAB PO SCH (21:00)
[2019-11-13] MEDS: ENOXAPARIN SODIUM 30 MG/0.3 ML SQ SCH (21:25)
[2019-11-13] MEDS: LEVOFLOXACIN 500 MG/D5W 100 ML 100 ML IV SCH (21:25)
[2019-11-13] MEDS: ATORVASTATIN CALCIUM 40 MG TABLET PO SCH (21:25)
[2019-11-13] MEDS: FUROSEMIDE 40 MG TABLET PO SCH (21:26)
[2019-11-13] MEDS: DOXEPIN HCL 25 MG CAP PO SCH (21:27)
[2019-11-13 23:30] VITALS: BP 100/60
[2019-11-14 03:16] VITALS: BP 105/60
[2019-11-14] MEDS: INSULIN HUMULIN R 100 UNIT/ML 3ML SQ SCH ×5 (06:46→21:36)
[2019-11-14 08:00] VITALS: BP 133/76
--- NOTE | 2019-11-14 08:30 | NUR ---
AM ASSESSMENT PT AWAKE AND ALERT, CALM AND QUIET, DENIES PAIN OR SOB. WOUND VAC IN PLACE AND PATENT. [facility] IN PLACE. PT ORIENTED, FORGETFUL AND CONFUSED AT TIMES. REORIENTED NEEDED.
[2019-11-14] MEDS: FAMOTIDINE 20MG TAB 20 MG TAB PO SCH ×2 (09:00→21:00)
[2019-11-14] MEDS: VANCOMYCIN 1GM+NS 250ML 250 ML IV SCH (09:00)
--- NOTE | 2019-11-14 09:00 | NUR ---
DR ADILIA PAT HERE TO SEE PT, ENCOURAGED PT TO AMBULATE AND UP TO CHAIR. PT AWAKE AND ALERT, CALM AND QUIET
[2019-11-14] MEDS: LISINOPRIL 2.5 MG TABLET PO SCH (09:48)
[2019-11-14] MEDS: FUROSEMIDE 40 MG TABLET PO SCH ×2 (09:49→21:00)
[2019-11-14] MEDS: METOPROLOL SUCCINATE 50 MG TAB.SR.24H PO SCH (09:49)
[2019-11-14] MEDS: LEVOFLOXACIN 500 MG TABLET PO SCH (09:49)
[2019-11-14] MEDS: POTASSIUM CHLORIDE 20 MEQ ERTAB PO SCH ×2 (09:49→21:01)
--- NOTE | 2019-11-14 10:10 | NUR ---
CM NOTE/[facility] CANCELLED PER KATY AT [facility], FACILITY NO LONGER TAKING ADMISSION. PATIENT ADMISSION REQUEST CANCELLED. SPOUSE, JIMMY BYNUM, CALLED AND RELAYED MESSAGE. PER SPOUSE, WOULD LIKE SNF IN [place] SINCE THAT IS WHERE PATIENT SPOUSE AND MOTHER LIVE. CM TO LOOK FOR SNF IN [place] AND WHO ARE ACCEPTING ADMISSION AND HAVE NO COVID19, WILL FOLLOW UP ACCORDINGLY. PER SPOUSE, WAS INTERESTED IN [facility].
[2019-11-14 12:00] VITALS: BP 116/59
[2019-11-14] MEDS: CLINDAMYCIN HCL 150 MG CAP PO SCH ×2 (13:30→19:04)
--- NOTE | 2019-11-14 13:30 | NUR ---
PT PATIENT IN BED, PHYSICAL THERAPY HERE TO SEE PT, REFUSED TO WORK WITH PT. ENCOURAGED AND EDUCATED PATIENT ON IMPORTANCE OF HAVING PHYSICAL THERAPY AND AMBULATING. PT REFUSED, STATED "I DON'T CARE WHAT SAYS".
--- NOTE | 2019-11-14 15:00 | NUR ---
WOUND VAC WOUND VAC DRESSING CHANGED, PT TOLERATED WELL. WOUND MEASURES 10CM X 4.5 CM X 2 CM, SMALL AMOUNT OF CREAM COLORED PURULENT DRAINAGE IN CONTAINER. WOUND CLEANSED, NEW DRESSING APPLIED, CONTAINER EXCHANGED USING ASEPTIC TECHNIQUE, TOLERATED WELL.
--- NOTE | 2019-11-14 15:31 | NUR ---
CM NOTE/[facility] PER LEYDA AT [facility], ACCEPTING ADMISSION AND COVID FREE. I CALLED TO OBTAIN [facility], WILL MAKE CLINICAL PACKET IN MEAN TIME. PENDING TO SENT CLINICAL PACKET ONCE VERBAL CONSENT RECEIVED. PATIENT REMAINS CONFUSED.
--- NOTE | 2019-11-14 15:52 | NUR ---
CM NOTE/[facility] ACCEPTED/[facility] COM[facility]TED PRIOR TO [facility], CLINICAL PACKET FAXED AND RECEIVED. PER LEYDA AT [facility], PATIENT ACCEPTED, PENDING COVID RESULTS. CURRENTLY WORKING ON [facility] ORDERED BY MD, WILL FOLLOW UP ACCORDINGLY.
[2019-11-14 16:00] VITALS: BP 102/60
--- NOTE | 2019-11-14 16:19 | NUR ---
CM NOTE/SNF AND [facility] TO SET UP [facility] WOUND VAC. LEYDA TIPTON.
[2019-11-14] MEDS: ACETAMINOPHEN 325 MG TAB PO PRN (19:03)
[2019-11-14 19:42] VITALS: BP 100/47
[2019-11-14] MEDS: ATORVASTATIN CALCIUM 40 MG TABLET PO SCH (21:00)
[2019-11-14] MEDS: DOXEPIN HCL 25 MG CAP PO SCH (21:02)
[2019-11-14] MEDS: ENOXAPARIN SODIUM 30 MG/0.3 ML SQ SCH (21:04)
[2019-11-15] VITALS: BP 93/55
[2019-11-15] MEDS: CLINDAMYCIN HCL 150 MG CAP PO SCH ×4 (00:01→17:10)
[2019-11-15 03:43] LABS: HEMATOCRIT 26.5 % (36-48); MEAN CORPUSCULAR HEMOGLOBIN 21.8 pg (27.0-33.0); MEAN CORPUSCULAR HGB CONC 29.8 g/dL (32.0-36.0); RED BLOOD CELL COUNT(AUTO) 3.63 MIL/uL (4.00-5.50); RED CELL DISTRIBUTION WIDTH 19.8 % (11.0-15.5)
[2019-11-15 03:54] LABS: CREATININE 1.3 mg/dL (0.5-1.5); POTASSIUM 4.2 mmol/L (3.5-5.1)
[2019-11-15 04:00] VITALS: BP 106/43
[2019-11-15] MEDS: INSULIN HUMULIN R 100 UNIT/ML 3ML SQ SCH ×4 (05:42→21:00)
[2019-11-15 08:18] VITALS: BP 85/52
[2019-11-15] MEDS ORDERED: IRON SUCROSE COMPLEX 100 MG in SODIUM CHLORIDE 0.9% 50 ML IV SCH (09:00)
[2019-11-15] MEDS ORDERED: COMPOUND IV MISC 1 EACH IVSOLN MISC PRN (09:00)
[2019-11-15] MEDS ORDERED: ASPIRIN 81MG TAB.CHEW PO SCH (09:00)
[2019-11-15] MEDS: FAMOTIDINE 20MG TAB 20 MG TAB PO SCH ×2 (09:00→21:00)
[2019-11-15] MEDS ORDERED: FUROSEMIDE 40 MG TABLET PO SCH (09:00)
[2019-11-15] MEDS: LISINOPRIL 2.5 MG TABLET PO SCH (09:20)
[2019-11-15] MEDS: METOPROLOL SUCCINATE 50 MG TAB.SR.24H PO SCH (09:21)
[2019-11-15] MEDS: LEVOFLOXACIN 500 MG TABLET PO SCH (09:21)
[2019-11-15] MEDS: POTASSIUM CHLORIDE 20 MEQ ERTAB PO SCH ×2 (09:22→21:30)
[2019-11-15 11:48] VITALS: BP 84/46
--- NOTE | 2019-11-15 12:43 | NUR ---
RD UPDATE Pt to discontinue Elie BID, per Pt request. RD to continue to monitor.
--- NOTE | 2019-11-15 13:00 | NUR ---
CM NOTE/[facility] SNF APPROVED PER [facility]. COVID NEGATIVE LABWORK FAXED AND CONFIRMED RECEIVED. EMS SET UP FOR TRANSPORTATION. HILARY RN, PRIMARY NURSE, MADE AWARE OF SNF APPROVAL.
[2019-11-15 17:01] VITALS: BP 86/48
--- NOTE | 2019-11-15 20:00 | NUR ---
BY JARVIS RICHARD :CT SUTURES REMOVED, DRSG APPLIED . MID STERNAL WOUND VAC REMOVED, WET TO DRY DRESSING APPLIED . PATIENT TO BE TRANSFERRED TO [facility]. REPORT ALREADY CALLED BY RN.
[2019-11-15 21:00] VITALS: BP 101/73
[2019-11-15] MEDS: ATORVASTATIN CALCIUM 40 MG TABLET PO SCH (21:30)
[2019-11-15] MEDS: DOXEPIN HCL 25 MG CAP PO SCH (21:31)
[2019-11-15] MEDS: ENOXAPARIN SODIUM 30 MG/0.3 ML SQ SCH (21:33)
--- NOTE | 2019-11-15 22:35 | NUR ---
PATIENT DISCHARGED TO [facility] VIA AMBULANCE SERVICES. PATIENT AWAKE AND ALERT, IN NO DISTRESS.ALL BELONGINGS WITH PATIENT. Addendum: 11/15/19 at 2251 by ROVERTO POON RN RN ATTEMPT TO GIVE COURTESY CALL TO -LINE BUSY, NO ANSWER
== END 2019-11-15 22:30 | DRG 235 ==
LOC: 4CH 17:19 → 2CV 10-31 10:56 → 2BH 11-01 19:07 → 4AH 11-04 17:54 → 4BH 11-08 06:13 → 4CH 11-14 09:26
PROVIDERS: ADMIT Internal Medicine; ATTEND Internal Medicine
PROC: 02100Z9 Bypass Coronary Artery, One Artery from Left Internal Mammary, Open Approach (ICD-10-PCS; principal; 2019-10-31 11:07)
PROC: 021009W Bypass Coronary Artery, One Artery from Aorta with Autologous Venous Tissue, Open Approach (ICD-10-PCS; 2019-10-31 11:07)
PROC: 06BP4ZZ Excision of Right Saphenous Vein, Percutaneous Endoscopic Approach (ICD-10-PCS; 2019-10-31 11:07)
DX: I25.10 Atherosclerotic heart disease of native coronary artery without angina pectoris (principal); J95.1 Acute pulmonary insufficiency following thoracic surgery; I50.41 Acute combined systolic (congestive) and diastolic (congestive) heart failure; D62 Acute posthemorrhagic anemia; F05 Delirium due to known physiological condition; I97.130 Postprocedural heart failure following cardiac surgery; I13.0 Hypertensive heart and chronic kidney disease with heart failure and stage 1 through stage 4 chronic kidney disease, or unspecified chronic kidney disease; I82.812 Embolism and thrombosis of superficial veins of left lower extremity; N17.9 Acute kidney failure, unspecified; M19.90 Unspecified osteoarthritis, unspecified site; E11.22 Type 2 diabetes mellitus with diabetic chronic kidney disease; E11.51 Type 2 diabetes mellitus with diabetic peripheral angiopathy without gangrene; E78.00 Pure hypercholesterolemia, unspecified; E78.5 Hyperlipidemia, unspecified; F32.9 Major depressive disorder, single episode, unspecified; I25.5 Ischemic cardiomyopathy; I34.0 Nonrheumatic mitral (valve) insufficiency; I70.8 Atherosclerosis of other arteries; N18.3 Chronic kidney disease, stage 3 (moderate); R09.02 Hypoxemia; Z20.828 Contact with and (suspected) exposure to other viral communicable diseases; Y83.2 Surgical operation with anastomosis, bypass or graft as the cause of abnormal reaction of the patient, or of later complication, without mention of misadventure at the time of the procedure; Y71.8 Miscellaneous cardiovascular devices associated with adverse incidents, not elsewhere classified; Y83.8 Other surgical procedures as the cause of abnormal reaction of the patient, or of later complication, without mention of misadventure at the time of the procedure; Y92.89 Other specified places as the place of occurrence of the external cause; Z87.891 Personal history of nicotine dependence; Z86.11 Personal history of tuberculosis; Z75.1 Person awaiting admission to adequate facility elsewhere; Z79.84 Long term (current) use of oral hypoglycemic drugs; Z79.02 Long term (current) use of antithrombotics/antiplatelets; Z79.4 Long term (current) use of insulin; Z79.82 Long term (current) use of aspirin; Z79.899 Other long term (current) drug therapy; Z98.84 Bariatric surgery status; Z88.0 Allergy status to penicillin; Z86.718 Personal history of other venous thrombosis and embolism
CPT/HCPCS: 36415; 36600; 70450; 71045; 80048; 80053; 80061; 80202; 82330; 82435; 82803; 82947; 82948; 83036; 83605; 83735; 83880; 84100; 84132; 84295; 85018; 85025; 85027; 85347; 85610; 85730; 86850; 86900; 86901; 86922; 93005; 93880; 93925; 93970; 94002; 94010; 94150; 97039; A4357; A4606; A7048; G0378; J0171; J0282; J0610; J1265; J1644; J1650; J1756; J1815; J1940; J1956; J2001; J2250; J2405; J2440; J2704; J2720; J3010; J3370; J3475; J3480; J3490; J7030; J7040; J7060; J7120; P9045; Q0163; U0003

== ENCOUNTER 2020-02-09 14:37 | Inpatient (IN) | payer MEDICARE ==
[~2020-02-09] VITALS: Ht 165.1 cm; Wt 70.5 kg
[~2020-02-09 14:37] MED LIST: ASPI-556 PO; ATOR20TA65 PO; BIOT10005 PO; CHOL200012 PO; CLOP75TA32 PO; DIPH25 PO; DOXE100C4 PO; FAMO20TA8 PO; FURO40TA5 PO; GLIP10TA9 PO; INSU100I21 SQ; LACT1CAP62 PO; LIRA0.6P2 SQ; METF-446 PO; MULT-1311 PO; OMEG100T PO; SIMV10TA97 PO; ZOLP5TAB8 PO
[2020-02-09 15:20] VITALS: BP 120/67
[2020-02-09] MEDS ORDERED: VANCOMYCIN PROTOCOL PER PHARMACY IV SCH (15:30)
[2020-02-09] MEDS ORDERED: PHARMACY COMMUNICATION MISC SCH (16:00)
[2020-02-09 16:30] LABS: HEMATOCRIT 39.9 % (36-48); MEAN CORPUSCULAR HEMOGLOBIN 28.2 pg (27.0-33.0); MEAN CORPUSCULAR HGB CONC 31.8 g/dL (32.0-36.0); MEAN CORPUSCULAR VOLUME 88.5 fL (79-99); PLATELET COUNT (AUTO) 299 K/uL (130-400); RED BLOOD CELL COUNT(AUTO) 4.51 MIL/uL (4.00-5.50); RED CELL DISTRIBUTION WIDTH 18.6 % (11.0-15.5); WHITE BLOOD COUNT (AUTO) 9.6 K/uL (4.8-10.8)
[2020-02-09 16:41] LABS: INR 0.95 (0.85-1.15); PROTHROMBIN TIME 10.3 SEC (9.6-11.6)
[2020-02-09 16:43] LABS: ALBUMIN 2.3 g/dL (3.5-5.0); BILIRUBIN,TOTAL 0.2 mg/dL (0.2-1.0); CREATININE 1.1 mg/dL (0.5-1.5); POTASSIUM 3.6 mmol/L (3.5-5.1); TOTAL PROTEIN, SERUM 5.7 g/dL (6.0-8.3)
[2020-02-09] MEDS ORDERED: VANCOMYCIN 1.25 GM in SODIUM CHLORIDE 0.9% 250 ML IV ONE (17:00)
[2020-02-09] MEDS ORDERED: COMPOUND IV REFRIGERATED 1 EACH IVSOLN MISC PRN (17:00)
[2020-02-09] MEDS ORDERED: AZTREONAM 1 GM VIAL IVP SCH (17:00)
[2020-02-09] MEDS ORDERED: IOHEXOL-350 50ML VIAL IV ONE (17:17)
[2020-02-09] MEDS ORDERED: VANCOMYCIN 1GM+NS 250ML 250 ML IV SCH (18:00)
[2020-02-09] MEDS ORDERED: METF-910 PO (18:43)
[2020-02-09] MEDS ORDERED: FERR325T22 PO (18:43)
[2020-02-09] MEDS ORDERED: PANT20TA18 PO (18:43)
[2020-02-09 19:16] VITALS: BP 128/72
[2020-02-09] MEDS ORDERED: VANCOMYCIN 0.75 GM in SODIUM CHLORIDE 0.9% 250 ML IV SCH (21:00)
--- NOTE | 2020-02-09 21:59 | NUR ---
COVID TESTING PATIENT SCHEDULED FOR SURGICAL PROCEDURE TOMORROW MORNING AT 0800, COVID -[address] PAT. CONTACTED LAB TO OBTAIN SPECIMEN KIT TO COLLECT THE SAMPLE. I WAS INFORMED THAT PCR RESULT WILL NOT BE AVAILABLE FOR 24-[address] PAT WAS INFORMED BOUT THE DELAY IN OBTAINING THE RESULTS AND ASKED IF A RAPID TEST WOULD SUFFICE. DR. PAT STATED THAT HE WAS NOT OF THE OPINION THAT THE COVID-19 TEST WAS NEEDED, HOWEVER INSTRUCTIONS GIVEN TO WHAT WAS NECESSARY TO BE IN COMPLIANCE WITH HOSPITAL'S POLICY. CONSULTED WITH HATCH TENDER CARISSA WHO INSTRUCTED THAT A RAPID TEST BE PERFORMED. ORDERS WILL BE IMPLEMENTED INSTRUCTED.
[2020-02-09] MEDS: METRONIDAZOLE 500MG/100ML BAG 100 ML IVPB SCH (22:09)
--- NOTE | 2020-02-09 22:37 | NUR ---
SAMPLE COVID-19 TEST SAMPLE COLLECTED AND SENT TO LABORATORY FOR PROCESSING.
[2020-02-09 23:17] VITALS: BP 122/73
[2020-02-10] VITALS (21 sets, daily range): BP systolic 93–128; BP diastolic 45–67
--- NOTE | 2020-02-10 00:05 | NUR ---
HIBICLENS SHOWER HIBICLENS SHOWER COMPLETED, PATIENT ASSISTED BACK TO BED AND MADE COMFORTABLE, REMINDED THAT SHE WILL NOT BE ABLE TO HAVE ANY FOOD OR WATER AFTER MIDNIGHT. TELEMETRY RUNNING SR 91. NO SIGN OF DISTRESS NOTED.
[2020-02-10] MEDS: AZTREONAM 1 GM VIAL IVP SCH ×4 (00:39→22:33)
[2020-02-10] MEDS ORDERED: VANCOMYCIN 0.75 GM in SODIUM CHLORIDE 0.9% 250 ML IV SCH (06:00)
[2020-02-10] MEDS ORDERED: VANCOMYCIN 750MG + NS 250 ML IV SCH ×2 (06:00)
[2020-02-10] MEDS ORDERED: DEXTROSE 50%-WATER 50 ML DISP.SYRIN IV ONE (06:11)
[2020-02-10] MEDS: METRONIDAZOLE 500MG/100ML BAG 100 ML IVPB SCH ×3 (06:12→21:25)
--- NOTE | 2020-02-10 07:00 | NUR ---
BLOOD GLUCOSE PATIENT BLOOD GLUCOSE LEVEL WAS 48MG/DL, NPO FOR SURGERY THIS AM. MEDICATED WITH DEXTROSE 50%. SURGICAL CONSENT AND PRE-OP CHECKLIST COMPLETED. BLOOD GLUCOSE WAS RECHECKED AT 198. SURGICAL TEAM TO COLLECT PATIENT FOR SURGICAL PROCEDURE, REPORT GIVEN AND BELONGING SECURED IN THE ROOM.
[2020-02-10] MEDS ORDERED: CLINDAMYCIN PHOSPHATE 150 MG/ML 6ML VIAL ONE (07:19)
[2020-02-10] MEDS ORDERED: SODIUM CHLORIDE 0.9% 1000ML 1,000 ML IV ONE (07:24)
[2020-02-10] MEDS: VANCOMYCIN 0.75 GM in SODIUM CHLORIDE 0.9% 250 ML IV SCH ×2 (08:00→20:36)
[2020-02-10 09:24] LABS: ABG BASE EXCESS -3.3 mmol/L (-2.0-3.0); ABG HCO3 21.6 mmol/L (21.0-28.0); ABG OXYGEN SATURATION 97.9 % (95.0-99.0); ABG PCO2 38 mmHg (32-45)
--- NOTE | 2020-02-10 09:59 | NUR ---
CM NOTE/IA MEET WITH PATIENT IN ROOM. PER PATIENT, LIVES WITH SPOUSE, INDEPENDENT WITH ADLS, NO USE OF PROVIDERS OR HOME HEALTH, HAS WALKER, AND FEELS SAFE TO RETURN HOME ONCE DISCHARGED. Addendum: 02/10/20 at 1000 by AMARILIS CARIAS RN CM Amended: Links added.
[2020-02-10 10:17] LABS: ABG BASE EXCESS -1.4 mmol/L (-2.0-3.0); ABG HCO3 26.2 mmol/L (21.0-28.0); ABG OXYGEN SATURATION 97.8 % (95.0-99.0); ABG PCO2 59 mmHg (32-45)
--- NOTE | 2020-02-10 10:25 | NUR ---
PT ARRIVED TO PACU WITH RT IJ CENTRAL LINE AND LT RADIAL ARTERIAL LINE. LT RADIAL ARTERIAL LINE D/C'D PER ANESTHESIA ORDER. PULSES GOOD, PRESSURE HELD X10 MINUTES. NO BLEEDING NOTED Addendum: 02/10/20 at 1046 by SRIKANTH WILSON RN RN Amended: Links added.
[2020-02-10] MEDS ORDERED: TRAMADOL HCL 50 MG TABLET PO PRN (10:45)
[2020-02-10] MEDS ORDERED: HYDRALAZINE HCL 20 MG/ML VIAL IV PRN (11:45)
[2020-02-10] MEDS ORDERED: DiphenhydrAMINE HCL 50 MG/ML VIAL IV PRN (11:45)
[2020-02-10] MEDS ORDERED: GLUCAGON 1MG KIT 1 MG ML IM PRN (11:45)
[2020-02-10] MEDS ORDERED: MORPHINE SULFATE 2 MG/ML 1ML SYG IV PRN (11:45)
[2020-02-10] MEDS ORDERED: ONDANSETRON HCL 4 MG/2 ML VIAL IV PRN (11:45)
[2020-02-10] MEDS ORDERED: GUAIFENESIN-DM 200/20 MG 10 ML PO PRN (11:45)
[2020-02-10] MEDS ORDERED: LACTULOSE 20 GM/30 ML UDCUP PO PRN (11:45)
[2020-02-10] MEDS ORDERED: ZOLPIDEM TARTRATE 5 MG TAB PO PRN (11:45)
[2020-02-10] MEDS ORDERED: DEXTROSE 50%-WATER 50 ML DISP.SYRIN IV PRN (11:45)
[2020-02-10] MEDS ORDERED: ACETAMINOPHEN 325 MG TAB PO PRN ×2 (11:45)
[2020-02-10] MEDS ORDERED: NITROGLYCERIN 0.4 MG SL TAB SL PRN (11:45)
[2020-02-10] MEDS ORDERED: MAG HYDROX/AL HYDROX/SIMETH ES 30 ML SUSP UDCUP PO PRN (11:45)
[2020-02-10] MEDS ORDERED: DIPHENHYDRAMINE HCL 25 MG CAPSULE PO PRN (11:45)
--- NOTE | 2020-02-10 12:00 | NUR ---
pt back from or. at the moment of arrival pt is aa0 x 3, complaining of mild neck pain and discomfort in the central line cath area. bogota dressing covering chest, wound vac place on chest at 125 continuous suction with serosanguineous fluid.
[2020-02-10] MEDS: IPRATROPIUM 0.5 MG/2.5 ML INH IH SCH ×3 (12:06→23:17)
[2020-02-10] MEDS: FERROUS SULFATE 325 MG TABLET.DR PO SCH (12:49)
[2020-02-10] MEDS: ASPIRIN 81 MG EC TAB PO SCH (12:49)
[2020-02-10] MEDS: CLOPIDOGREL BISULFATE 75 MG TAB PO SCH (12:49)
[2020-02-10] MEDS: TRAMADOL HCL 50 MG TABLET PO PRN (12:59)
--- NOTE | 2020-02-10 17:30 | NUR ---
5 FR 2 LUMEN PICC INSERTED TO LEFT BASILIC VEIN, USING ASEPTIC TECHNIQUE. (+) VPS BULLSEYE INDICATES PICC TIP IN LOWER 1/3 OF SVC OR AT CAJ. PICC TRIMMMED AT 42 CM WITH 38CM INTERNAL AND 4CM EXTERNAL CATHETER. BIOPATCH AND STAT JEAN CARLOS PLACED WITH STERILE DRESSING APPLIED ASEPTICALLY. ARM CIRCUMERENCE IS 26CM. BOTH LUMENS HAVE GOOD BLOOD RETURN AND FLUSHED EASILY AND CLAMPED. PICC IS OK TO USE PER PROTOCOL. STEVEN CONLEY AWARE.
[2020-02-10] MEDS: INSULIN HUMULIN R 100 UNIT/ML 3ML SQ SCH ×2 (18:37→20:40)
--- NOTE | 2020-02-10 20:00 | NUR ---
ASSESSMENT PATIENT RECEIVED AWAKE ALERT AND ORIENTED X 3 IN NO OBVIOUS RESPIRATORY DISTRESS. TRIPLE LUMEN INTERNAL JUGULAR INSITU DRESSING DRY AND INTACT. DOUBLE LUMEN PICC LINE IN PLACE, DRESSING DRY AND INTACT. TRANSPARENT DRESSING NOTED TO THE MID STERNAL AREA DRY AND INTACT WITH WOUND VACUUM ATTACHED TO SUCTION WITH MODERATE AMOUNT OF DRAINAGE. SWELLING NOTED TO THE BILATERAL LOWER EXTREMITIES. PATIENT DENIES PAIN AT THIS TIME.
[2020-02-10] MEDS: FUROSEMIDE 40 MG TABLET PO SCH (20:37)
[2020-02-10] MEDS: ATORVASTATIN CALCIUM 20 MG TABLET PO SCH (20:37)
[2020-02-10] MEDS: DOXEPIN HCL 25 MG CAP PO SCH (20:37)
[2020-02-11] VITALS: BP 91/53
[2020-02-11] MEDS: TRAMADOL HCL 50 MG TABLET PO PRN (03:22)
--- NOTE | 2020-02-11 03:42 | NUR ---
UPDATE PATIENTS CONDITION REMAINS STABLE THROUGHOUT THE SHIFT,NO SIGNS OF DISTRESS NOTED, MEDICATED FOR PAIN TO THE LEFT KNEE. HEAT PACK APPLIED FOR COMFORT. WOUND VAC REMAINS INTACT TO SUCTION.
[2020-02-11 03:56] LABS: HEMATOCRIT 21.9 % (36-48); MEAN CORPUSCULAR HEMOGLOBIN 28.5 pg (27.0-33.0); MEAN CORPUSCULAR HGB CONC 32.4 g/dL (32.0-36.0); RED BLOOD CELL COUNT(AUTO) 2.49 MIL/uL (4.00-5.50); WHITE BLOOD COUNT (AUTO) 14.6 K/uL (4.8-10.8)
[2020-02-11 04:00] VITALS: BP 98/50
[2020-02-11 04:13] LABS: POTASSIUM 4.1 mmol/L (3.5-5.1)
--- NOTE | 2020-02-11 04:34 | NUR ---
LAB RESULTS INFORMED DR. PAT OF HGB 7.1 AND HCT 21.9 AND BP 91/53. ASKED IF THE UNIT OF PRBC IN THE BLOOD BANK SHOULD BE TRANSFUSED. MD GAVE ORDERS TO REPEAT THE CBC AND TRANSFUSE IF HGB BELOW 7. PATIENT WILL BE MONITORED FOR ANY ADDITIONAL SYMPTOMS.
[2020-02-11] MEDS: METRONIDAZOLE 500MG/100ML BAG 100 ML IVPB SCH ×3 (05:34→20:55)
[2020-02-11 05:43] LABS: BASOPHILS % (AUTO) 0.4 % (0.0-5.0); EOSINOPHILS % (AUTO) 0.2 % (0.0-8.0); LYMPHOCYTES % (AUTO) 9.9 % (21.0-51.0); MEAN CORPUSCULAR HEMOGLOBIN 28.2 pg (27.0-33.0); MEAN CORPUSCULAR HGB CONC 32.1 g/dL (32.0-36.0); MEAN CORPUSCULAR VOLUME 87.8 fL (79-99); MONOCYTES % (AUTO) 7.3 % (3.0-13.0); NEUTROPHILS % (AUTO) 81.8 % (40.0-77.0); PLATELET COUNT (AUTO) 276 K/uL (130-400); RED BLOOD CELL COUNT(AUTO) 2.38 MIL/uL (4.00-5.50); RED CELL DISTRIBUTION WIDTH 19.1 % (11.0-15.5); WHITE BLOOD COUNT (AUTO) 13.5 K/uL (4.8-10.8)
[2020-02-11 05:51] LABS: HEMATOCRIT 20.9 % (36-48)
[2020-02-11] MEDS: IPRATROPIUM 0.5 MG/2.5 ML INH IH SCH ×4 (06:19→23:00)
[2020-02-11] MEDS: AZTREONAM 1 GM VIAL IVP SCH ×3 (06:23→22:47)
[2020-02-11] MEDS: INSULIN HUMULIN R 100 UNIT/ML 3ML SQ SCH ×4 (06:24→21:00)
--- NOTE | 2020-02-11 06:38 | NUR ---
HGB LAB CALLED AT 0550 TO REPORT HGB 6.7/ HCT 20.9, WILL TRANSFUSE 1 UNIT PRBC ORDERED. CONSENT AND BLOOD BAND ([id number]) VERIFIED AND BLOOD COLLECTED AND TRANSFUSION OF [id number] INITIATED AT 0630. REMAINED AT THE BEDSIDE WITH PATIENT PT DENIES ANY REACTIONS AT 5MINS AND 15 MINUTES ASSESSMENT
[2020-02-11 07:14] VITALS: BP 107/69
[2020-02-11] MEDS: ASPIRIN 81 MG EC TAB PO SCH (08:45)
[2020-02-11] MEDS: VANCOMYCIN 0.75 GM in SODIUM CHLORIDE 0.9% 250 ML IV SCH ×2 (08:45→20:46)
[2020-02-11] MEDS: CLOPIDOGREL BISULFATE 75 MG TAB PO SCH (08:45)
[2020-02-11] MEDS: FERROUS SULFATE 325 MG TABLET.DR PO SCH (08:45)
[2020-02-11] MEDS: PANTOPRAZOLE SODIUM 40 MG TABLET.DR PO SCH (08:46)
[2020-02-11] MEDS: FUROSEMIDE 40 MG TABLET PO SCH ×2 (08:46→20:45)
--- NOTE | 2020-02-11 09:43 | NUR ---
DR PAT EVALUATED AND EDUCATED THE PT ABOUT CONDITION AND PROCEDURE DONE YESTERDAY. MAKE SOME CHANGES IN HER TREATMENT AND VERBALLY ORDER TO REMOVE INTERNAL JUGULAR CENTRAL LINE CATHETER AND PERIPHERAL IV ACCESS.
[2020-02-11] MEDS ORDERED: HYDROCODONE/ACETAMINOPHEN 5/325 MG TAB PO PRN (10:00)
[2020-02-11 11:03] VITALS: BP 129/63
[2020-02-11 14:15] LABS: HEMATOCRIT 25.4 % (36-48); MEAN CORPUSCULAR HEMOGLOBIN 29.6 pg (27.0-33.0); MEAN CORPUSCULAR HGB CONC 33.9 g/dL (32.0-36.0); MEAN CORPUSCULAR VOLUME 87.3 fL (79-99); PLATELET COUNT (AUTO) 230 K/uL (130-400); RED BLOOD CELL COUNT(AUTO) 2.91 MIL/uL (4.00-5.50); RED CELL DISTRIBUTION WIDTH 17.5 % (11.0-15.5)
[2020-02-11 14:49] LABS: BAND NEUTROPHILS % (MANUAL) 11 % (0-2); LYMPHOCYTES % (MANUAL) 3 % (22-44); MAN.DIFF COMMENT-IMPRESSION MANUAL DIFFERENTIAL; MONOCYTES % (MANUAL) 7 % (2-9); PLATELET MORPHOLOGY COMMENT LARGE PLTS PRESENT; SEGMENTED NEUTROPHILS % 79 % (40-70)
[2020-02-11 15:20] VITALS: BP 100/65
[2020-02-11 20:05] VITALS: BP 107/76
[2020-02-11] MEDS: DOXEPIN HCL 25 MG CAP PO SCH (20:45)
[2020-02-11] MEDS: ATORVASTATIN CALCIUM 20 MG TABLET PO SCH (20:46)
[2020-02-11] MEDS ORDERED: ATORVASTATIN CALCIUM 20 MG TABLET PO SCH (21:00)
[2020-02-11] MEDS: INSULIN GLARGINE 100 UNITS/ML 10 ML VIAL SQ SCH (21:25)
[2020-02-12 00:08] VITALS: BP 112/57
[2020-02-12 03:05] VITALS: BP 113/54
[2020-02-12] MEDS: INSULIN HUMULIN R 100 UNIT/ML 3ML SQ SCH ×4 (05:43→21:19)
[2020-02-12] MEDS: AZTREONAM 1 GM VIAL IVP SCH (06:15)
[2020-02-12] MEDS: METRONIDAZOLE 500MG/100ML BAG 100 ML IVPB SCH (06:16)
[2020-02-12] MEDS: IPRATROPIUM 0.5 MG/2.5 ML INH IH SCH ×4 (06:33→23:55)
[2020-02-12 08:00] VITALS: BP 98/59
[2020-02-12] MEDS: CLOPIDOGREL BISULFATE 75 MG TAB PO SCH (08:17)
[2020-02-12] MEDS: FUROSEMIDE 40 MG TABLET PO SCH ×2 (08:17→21:15)
[2020-02-12] MEDS: ASPIRIN 81 MG EC TAB PO SCH (08:17)
[2020-02-12] MEDS: FERROUS SULFATE 325 MG TABLET.DR PO SCH (08:18)
[2020-02-12] MEDS: PANTOPRAZOLE SODIUM 40 MG TABLET.DR PO SCH (08:18)
[2020-02-12] MEDS: VANCOMYCIN 0.75 GM in SODIUM CHLORIDE 0.9% 250 ML IV SCH ×2 (08:18→21:14)
[2020-02-12] MEDS: TRAMADOL HCL 50 MG TABLET PO PRN (10:59)
[2020-02-12 11:47] VITALS: BP 112/62
[2020-02-12] MEDS: MEROPENEM 500 MG VIAL IVP SCH (15:17)
[2020-02-12 16:00] VITALS: BP 104/50
[2020-02-12] MEDS ORDERED: LACTULOSE 20 GM/30 ML UDCUP PO SCH (17:35)
[2020-02-12 20:05] VITALS: BP 108/61
[2020-02-12] MEDS: DOXEPIN HCL 25 MG CAP PO SCH (21:14)
[2020-02-12] MEDS: ATORVASTATIN CALCIUM 20 MG TABLET PO SCH (21:15)
[2020-02-12] MEDS: DOCUSATE SODIUM 100 MG CAP PO SCH (21:15)
[2020-02-12] MEDS: INSULIN GLARGINE 100 UNITS/ML 10 ML VIAL SQ SCH (21:20)
[2020-02-13] VITALS (7 sets, daily range): BP systolic 92–110; BP diastolic 16–64
[2020-02-13] MEDS: MEROPENEM 500 MG VIAL IVP SCH ×3 (01:17→22:39)
[2020-02-13] MEDS: IPRATROPIUM 0.5 MG/2.5 ML INH IH SCH ×3 (06:21→18:47)
[2020-02-13] MEDS: INSULIN HUMULIN R 100 UNIT/ML 3ML SQ SCH ×4 (06:36→20:23)
[2020-02-13] MEDS: DOCUSATE SODIUM 100 MG CAP PO SCH ×2 (08:42→20:22)
[2020-02-13] MEDS: FERROUS SULFATE 325 MG TABLET.DR PO SCH (08:42)
[2020-02-13] MEDS: FUROSEMIDE 40 MG TABLET PO SCH ×2 (08:42→20:22)
[2020-02-13] MEDS: PANTOPRAZOLE SODIUM 40 MG TABLET.DR PO SCH (08:42)
[2020-02-13] MEDS: CLOPIDOGREL BISULFATE 75 MG TAB PO SCH (08:43)
[2020-02-13] MEDS: VANCOMYCIN 0.75 GM in SODIUM CHLORIDE 0.9% 250 ML IV SCH ×2 (08:43→21:09)
[2020-02-13] MEDS: ASPIRIN 81 MG EC TAB PO SCH (08:43)
[2020-02-13] MEDS: TRAMADOL HCL 50 MG TABLET PO PRN (10:06)
--- NOTE | 2020-02-13 14:10 | NUR ---
WOUND VAC WOUND VAC REMOVED EARLIER BY DR DUMONT. ROBERT & JAVIER APPLIED BY TO STERNAL WOUND. WOUND VAC APPLIED @ THIS TIME. NO LEAK NOTED. PT TOLERATED WELL.
--- NOTE | 2020-02-13 16:08 | NUR ---
[facility] PHYSICIAN CONSULTED WITH PATIENT, NO CHANGES MADE AT THIS TIME; CONTINUE WITH CURRENT WOUND CARE. REPORT GIVEN TO PATIENT'S NURSE. Addendum: 02/13/20 at 1610 by ELEANOR CHAPA LVN Amended: Links added.
[2020-02-13] MEDS: DOXEPIN HCL 25 MG CAP PO SCH (20:17)
[2020-02-13] MEDS: ATORVASTATIN CALCIUM 20 MG TABLET PO SCH (20:22)
[2020-02-13] MEDS: INSULIN GLARGINE 100 UNITS/ML 10 ML VIAL SQ SCH (20:31)
[2020-02-14] MEDS: IPRATROPIUM 0.5 MG/2.5 ML INH IH SCH ×3 (00:04→11:29)
[2020-02-14 03:31] VITALS: BP_SYST 92; BP_SYST 97; BP_DIAS 49; BP_DIAS 55
[2020-02-14 05:11] LABS: BASOPHILS % (AUTO) 0.3 % (0.0-5.0); EOSINOPHILS % (AUTO) 3.3 % (0.0-8.0); LYMPHOCYTES % (AUTO) 12.9 % (21.0-51.0); MEAN CORPUSCULAR HEMOGLOBIN 29.1 pg (27.0-33.0); MEAN CORPUSCULAR HGB CONC 32.8 g/dL (32.0-36.0); MONOCYTES % (AUTO) 7.1 % (3.0-13.0); NEUTROPHILS % (AUTO) 76.1 % (40.0-77.0); PLATELET COUNT (AUTO) 189 K/uL (130-400); RED BLOOD CELL COUNT(AUTO) 3.26 MIL/uL (4.00-5.50); RED CELL DISTRIBUTION WIDTH 17.4 % (11.0-15.5); WHITE BLOOD COUNT (AUTO) 6.3 K/uL (4.8-10.8)
[2020-02-14 05:18] LABS: CREATININE 0.7 mg/dL (0.5-1.5); MAGNESIUM 0.9 mg/dL (1.80-2.40)
[2020-02-14 05:20] LABS: POTASSIUM 2.5 mmol/L (3.5-5.1)
[2020-02-14 05:26] LABS: B-TYPE NATRIURETIC PEPTIDE 409 pg/mL (0-100)
--- NOTE | 2020-02-14 05:27 | NUR ---
K+ : 2.5 ; Ma.90 Called on-call ( Stanford Hernández NP) via answering service. Answering service staff tried to contact him 3 times , but no reply.
--- NOTE | 2020-02-14 05:45 | NUR ---
Contacted on-call [facility] again ( Stanford Hernández NP) via answering service. Answering service staff tried to contact him 5 times , but still with no reply.
--- NOTE | 2020-02-14 06:05 | NUR ---
3rd Attempt on calling the on-call [facility] ( [place] Hernández NP) via answering service. Was again called 5x by answering service staff, but still no return call. Was texted 4 times but has not replied yet. At this time , Dr. Holguin was contacted but has not made a return call either.
[2020-02-14] MEDS: INSULIN HUMULIN R 100 UNIT/ML 3ML SQ SCH ×4 (06:29→20:22)
--- NOTE | 2020-02-14 06:33 | NUR ---
Return call made by Kathryn Prieto. Informed potassium ( 2.5 ) and Magnesium (0.90) result with an order to place patient on Full P.O potassium protocol and Magnesium protocol. Day shift RN made aware. Addendum: 02/14/20 at 0738 by IVANNA DOLL RN RN - GINNY Mcclain
[2020-02-14] MEDS ORDERED: MAGNESIUM 2GM PREMIX 50ML 50 ML IV ONE (06:42)
[2020-02-14] MEDS ORDERED: LIDOCAINE HCL-MPF 1% 2ML VIAL ONE (06:43)
[2020-02-14] MEDS ORDERED: POTASSIUM CHLORIDE 20MEQ/100ML 100 ML IV ONE (06:44)
[2020-02-14] MEDS ORDERED: POTASSIUM CHLORIDE 20 MEQ ERTAB PO PRN (06:45)
[2020-02-14] MEDS ORDERED: POTASSIUM CHLORIDE 10% ELIXIR 20 MEQ/15 ML UDCUP PO PRN (06:45)
[2020-02-14] MEDS ORDERED: LIDOCAINE HCL-MPF 1% 2ML VIAL IV PRN (06:45)
[2020-02-14 07:00] VITALS: BP 92/49
[2020-02-14] MEDS: VANCOMYCIN 0.75 GM in SODIUM CHLORIDE 0.9% 250 ML IV SCH ×2 (08:01→20:20)
[2020-02-14] MEDS: DOCUSATE SODIUM 100 MG CAP PO SCH ×2 (08:03→20:20)
[2020-02-14] MEDS: FERROUS SULFATE 325 MG TABLET.DR PO SCH (08:04)
[2020-02-14] MEDS: FUROSEMIDE 40 MG TABLET PO SCH ×2 (08:04→20:20)
[2020-02-14] MEDS: CLOPIDOGREL BISULFATE 75 MG TAB PO SCH (08:04)
[2020-02-14] MEDS: ASPIRIN 81 MG EC TAB PO SCH (08:04)
[2020-02-14] MEDS: PANTOPRAZOLE SODIUM 40 MG TABLET.DR PO SCH (08:04)
[2020-02-14] MEDS: MEROPENEM 500 MG VIAL IVP SCH ×2 (09:09→20:21)
--- NOTE | 2020-02-14 09:19 | NUR ---
REFUSED LAXATIVE. PATIENT OFFERED LACTULOSE BECAUSE SHE HASD HAD A BM SINCE 02/07. PATIENT REFUSED LACTULOSE AND STATED THAT SHE WANTS TO CONTINUE JUST TAKING THE COLACE AND SEE IF IT WORKS. ADVICE PT TO TAKE THE LACTULOSE OF BETTER RESULTS BUT SHE STILL DECLINED.
[2020-02-14] MEDS: POTASSIUM CHLORIDE 20MEQ/100ML 100 ML IV PRN ×2 (09:59→16:28)
[2020-02-14] MEDS: MAGNESIUM 2GM PREMIX 50ML 50 ML IV PRN ×2 (10:00→16:27)
[2020-02-14 11:00] VITALS: BP 104/50
[2020-02-14 12:42] LABS: MAGNESIUM 1.3 mg/dL (1.80-2.40); POTASSIUM 3.6 mmol/L (3.5-5.1)
[2020-02-14] MEDS ORDERED: ERTA1I IM (14:22)
[2020-02-14 15:00] VITALS: BP 93/56
--- NOTE | 2020-02-14 17:02 | NUR ---
CM NOTE/[facility] FOR IV ABT MET WITH PATIENT IN ROOM TO DISCUSS DCP. PER PATIENT, ALREADY HAS [facility] PHONE#[phone]. AGENCY CALLED, CONFIRMED ACTIVE. SPOKE WITH ROE. [facility] COMPLETED FOR [facility] AND [facility]. PER PEGGY AU TO RETURN WITH SERVICES WITH PT/WOUND VAC. CLINICAL PACKET FAXED TO [phone]. IV INVANZ ORDER FAXED TO [facility] AT [phone]. PENDING SIGNED RX FOR INVANZ, RX FILLED OUT AND LEFT FLAGGED IN CHART FOR MD TO SIGN. CM TO FOLLOW UP FOR . MED REC ALSO LEFT FLAGGED IN CHART FOR MD TO SIGN. REPORT AND REQUEST FOR RX AND MED REC ASKED OF KRYS CONLEY, PRIMARY NURSE. PER NURSE, WILL ASK MD WHEN ROUNDS IN AM. CM TO FOLLOW UP WITH REFERRAL.
[2020-02-14 19:30] VITALS: BP 115/64
[2020-02-14] MEDS: DOXEPIN HCL 25 MG CAP PO SCH (20:20)
[2020-02-14] MEDS: ATORVASTATIN CALCIUM 20 MG TABLET PO SCH (20:20)
[2020-02-14] MEDS: INSULIN GLARGINE 100 UNITS/ML 10 ML VIAL SQ SCH (20:21)
[2020-02-14 23:53] VITALS: BP 119/69
[2020-02-15 04:00] VITALS: BP 111/56
[2020-02-15] MEDS: INSULIN HUMULIN R 100 UNIT/ML 3ML SQ SCH ×3 (06:47→15:14)
[2020-02-15 07:00] VITALS: BP 93/58
[2020-02-15] MEDS: VANCOMYCIN 0.75 GM in SODIUM CHLORIDE 0.9% 250 ML IV SCH (10:14)
[2020-02-15] MEDS: DOCUSATE SODIUM 100 MG CAP PO SCH (10:19)
[2020-02-15] MEDS: CLOPIDOGREL BISULFATE 75 MG TAB PO SCH (10:19)
[2020-02-15] MEDS: MEROPENEM 500 MG VIAL IVP SCH (10:19)
[2020-02-15] MEDS: PANTOPRAZOLE SODIUM 40 MG TABLET.DR PO SCH (10:19)
[2020-02-15] MEDS: FUROSEMIDE 40 MG TABLET PO SCH (10:19)
[2020-02-15] MEDS: FERROUS SULFATE 325 MG TABLET.DR PO SCH (10:20)
[2020-02-15] MEDS: ASPIRIN 81 MG EC TAB PO SCH (10:20)
[2020-02-15 11:00] VITALS: BP 105/61
--- NOTE | 2020-02-15 14:20 | NUR ---
CM NOTE/[facility]/DC TODAY SPOKE WITH MICH AT [facility], RX UNDER PROCESS. QUOTE GIVEN, SPOUSE CALLED, ADRIANA BYNUM, AND SPOUSE AGREED TO QUOTE. PRIMARY NURSE, FABIOLA CONLEY, AWARE. WILL DC HOME TODAY.
== END 2020-02-15 18:00 | disposition home health service (06) | DRG 857 ==
LOC: EDH 14:37 → 4CH 14:38
PROVIDERS: ADMIT Internal Medicine Pulmonary Disease; ATTEND Internal Medicine Pulmonary Disease
PROC: 0PP004Z Removal of Internal Fixation Device from Sternum, Open Approach (ICD-10-PCS; 2010-02-09)
PROC: 02HV33Z Insertion of Infusion Device into Superior Vena Cava, Percutaneous Approach (ICD-10-PCS; 2020-02-10)
PROC: B548ZZA Ultrasonography of Superior Vena Cava, Guidance (ICD-10-PCS; 2020-02-10)
PROC: 0KBJ0ZZ Excision of Left Thorax Muscle, Open Approach (ICD-10-PCS; 2020-02-10)
PROC: 0KBH0ZZ Excision of Right Thorax Muscle, Open Approach (ICD-10-PCS; principal; 2020-02-10 08:37)
PROC: 30233N1 Transfusion of Nonautologous Red Blood Cells into Peripheral Vein, Percutaneous Approach (ICD-10-PCS; 2020-02-11)
DX: T81.41XA Infection following a procedure, superficial incisional surgical site, initial encounter (principal); T81.31XA Disruption of external operation (surgical) wound, not elsewhere classified, initial encounter; I10 Essential (primary) hypertension; E78.5 Hyperlipidemia, unspecified; I25.10 Atherosclerotic heart disease of native coronary artery without angina pectoris; I25.5 Ischemic cardiomyopathy; M19.90 Unspecified osteoarthritis, unspecified site; E11.9 Type 2 diabetes mellitus without complications; E78.00 Pure hypercholesterolemia, unspecified; Z20.828 Contact with and (suspected) exposure to other viral communicable diseases; E87.70 Fluid overload, unspecified; B96.20 Unspecified Escherichia coli [E. coli] as the cause of diseases classified elsewhere; Y83.2 Surgical operation with anastomosis, bypass or graft as the cause of abnormal reaction of the patient, or of later complication, without mention of misadventure at the time of the procedure; B95.4 Other streptococcus as the cause of diseases classified elsewhere; Z95.1 Presence of aortocoronary bypass graft; Z87.891 Personal history of nicotine dependence; Z79.899 Other long term (current) drug therapy; Z79.82 Long term (current) use of aspirin; Z79.4 Long term (current) use of insulin; Z79.02 Long term (current) use of antithrombotics/antiplatelets; Y92.89 Other specified places as the place of occurrence of the external cause
CPT/HCPCS: 36415; 71045; 71270; 80048; 80053; 80202; 82435; 82803; 82947; 82948; 83605; 83735; 83880; 84132; 84295; 85018; 85025; 85027; 85610; 85730; 86850; 86900; 86901; 86923; 87040; 87070; 87076; 87077; 87186; 87205; 87426; 93005; 94640; 94664; 97039; A4606; C1894; G0378; J0330; J1100; J1815; J2001; J2185; J2250; J2405; J2704; J2710; J3010; J3370; J3475; J3480; J3490; J7030; J7050; J7070; P9016; P9045; Q9967; U0003